=== PATIENT | male | born 1980 | race Caucasian/White ===

== ENCOUNTER 2017-10-03 15:20 | Emergency (ER) | payer OTHER ==
--- NOTE | 2017-10-03 16:17 | ER ---
Nurse's Notes [facility] Name: Sohan Rossi Age: 37 yrs Sex: Male : 1980 Arrival Date: 10/03/2017 Time: 15:24 Bed Treatment Private MD: Germania Lynch H Diagnosis: Low back pain;Radiculopathy, lumbar region-Left Presentation: 10/03 15:31 Presenting complaint: Patient states: " I've been having back pain for a while and I am ph having sciatic pain too." Pt reports pain in lower back that radiates to L leg and L groin. Pt reports having recent MRI at [facility] who instructed him to follow up w/ neuro and pain management. Transition of care: patient was not received from another setting of care. Onset of symptoms was October 03, 2017. Risk Assessment: Do you want to hurt yourself or someone else? Patient reports no desire to harm self or others. Initial Sepsis Screen: Does the patient meet any 2 criteria? No. Patient's initial sepsis screen is negative. Does the patient have a suspected source of infection? No. Patient's initial sepsis screen is negative. Care prior to arrival: None. 15:31 Method Of Arrival: Ambulatory ph 15:31 Acuity: KATIE 4 ph Historical: - Allergies: 15:34 No Known Allergies; ph - Home Meds: 15:34 Hydrocodone-Acetaminophen Oral [Active]; ph - PMHx: 15:34 None; ph - PSHx: 15:34 Knee surgery; ph - Immunization history:: Adult Immunizations up to date. - Social history:: Smoking status: Patient/guardian denies using tobacco. Screenin:54 Abuse screen: Denies threats or abuse. Denies injuries from another. Nutritional aj screening: No deficits noted. Tuberculosis screening: No symptoms or risk factors identified. Fall Risk None identified. Assessment: 15:54 General: Appears in no apparent distress. uncomfortable, Behavior is calm, cooperative, aj appropriate for age. Pain: Complains of pain in low back area and buttocks. Neuro: Level of Consciousness is awake, alert, obeys commands, Oriented to person, place, time, situation, Appropriate for age. Respiratory: Airway is patent Respiratory effort is even, unlabored, Respiratory pattern is regular, symmetrical. Derm: Skin is intact, is healthy with good turgor, Skin is pink, warm \\T\\ dry. normal. Musculoskeletal: Reports pain in low back area and buttocks. 16:21 Reassessment: Patient appears in no apparent distress at this time. No changes from aj previously documented assessment. Patient and/or family updated on plan of care and expected duration. Pain level reassessed. Patient is alert, oriented x 3, equal unlabored respirations, skin warm/dry/pink. Vital Signs: 15:35 BP 154 / 93; Pulse 94; Resp 18; Temp 97.8; Pulse Ox 98% on R/A; Weight 104.33 kg; ph Height 6 ft. 2 in. (187.96 cm); Pain 9/10; 15:35 Body Mass Index 29.53 (104.33 kg, 187.96 cm) ph ED Course: 15:24 Patient arrived in ED. mr 15:24 Germania Lynch DO is Private Physician. mr 15:34 Triage completed. ph 15:35 Arm band placed on. ph 15:39 Mady Kapoor, EDIS is Primary Nurse. aj 15:44 Wenceslao Valderrama PA is PHCP. cp 15:44 Wali Ag MD is Attending Physician. cp 15:54 Patient has correct armband on for positive identification. aj 16:21 No provider procedures requiring assistance completed. Patient did not have IV access aj during this emergency room visit. Administered Medications: No medications were administered Outcome: 16:16 Discharge ordered by MD. cp 16:21 Discharged to home with crutches. aj 16:21 Condition: good 16:21 Discharge instructions given to patient, Instructed on discharge instructions, follow up and referral plans. Demonstrated understanding of instructions, follow-up care. 16:23 Patient left the ED. aj Signatures: Mady Kapoor, RN RN Julee Biggs mr Caitlin Bautista RN RN ph Wenceslao Valderrama PA PA cp
--- NOTE | 2017-10-03 16:17 | EDPHYS ---
Physician Documentation [facility] Name: Sohan Rossi Age: 37 yrs Sex: Male : 1980 Arrival Date: 10/03/2017 Time: 15:24 Bed Treatment Private MD: Germania Lynch H ED Physician Wali Ag HPI: 10/03 16:07 This 37 yrs old Male presents to ER via Ambulatory with complaints of Back cp Pain. 16:07 The patient presents with pain that is chronic. The symptoms are located in the low cp back. Onset: The symptoms/episode began/occurred 6-8 weeks ago. Associated signs and symptoms: Pertinent negatives: abdominal pain, chest pain, constipation, fever, incontinence, numbness, urinary retention. Patient reports he has been performing normal duties at work and is requesting work note until he can f/u with pain management doctor and family doctor. 16:07 The pain radiates to the posterior aspect of left leg. cp Historical: - Allergies: 15:34 No Known Allergies; ph - Home Meds: 15:34 Hydrocodone-Acetaminophen Oral [Active]; ph - PMHx: 15:34 None; ph - PSHx: 15:34 Knee surgery; ph - Immunization history:: Adult Immunizations up to date. - Social history:: Smoking status: Patient/guardian denies using tobacco. ROS: 16:10 Eyes: Negative for injury, pain, redness, and discharge. cp 16:10 Constitutional: Negative for body aches, chills, fever, poor PO intake. 16:10 Eyes: Negative for discharge, pain, redness. 16:10 Neck: Negative for pain with movement, pain at rest, stiffness. 16:10 Cardiovascular: Negative for chest pain, edema, palpitations. 16:10 Respiratory: Negative for cough, shortness of breath, wheezing. 16:10 Abdomen/GI: Negative for abdominal pain, nausea, vomiting, and diarrhea, black/tarry stool, rectal bleeding, bowel incontinence. 16:10 : Negative for urinary symptoms, difficulty urinating, bladder incontinence, testicular pain 16:10 MS/extremity: Positive for pain, of the posterior aspect left leg. 16:10 Neuro: Negative for numbness, weakness. 16:10 All other systems are negative. Exam: 16:12 Head/Face: Normocephalic, atraumatic. cp 16:12 Constitutional: The patient appears in no acute distress, alert, awake, non-toxic, well developed, well nourished, uncomfortable. 16:12 Eyes: Periorbital structures: appear normal, Conjunctiva: normal, no exudate, no cp injection, Sclera: no appreciated abnormality, Lids and lashes: appear normal, bilaterally. 16:12 ENT: External ear(s): are unremarkable, Nose: is normal, Mouth: is normal. 16:12 Neck: External neck: is normal, ROM/movement: is normal, is supple. 16:12 Chest/axilla: Inspection: normal. 16:12 Cardiovascular: Rate: normal, Rhythm: regular. 16:12 Respiratory: the patient does not display signs of respiratory distress, Respirations: normal, no use of accessory muscles, no retractions, no splinting, no tachypnea. 16:12 Abdomen/GI: Exam negative for discomfort, distension, guarding, Inspection: abdomen appears normal. 16:12 Back: pain, of the lumbar area and left low back, ROM is painful. 16:12 Musculoskeletal/extremity: Exam is negative for calf tenderness, decreased range of motion, edema, injury. 16:12 Neuro: Orientation: is normal, Mentation: is normal, Motor: moves all fours. Vital Signs: 15:35 BP 154 / 93; Pulse 94; Resp 18; Temp 97.8; Pulse Ox 98% on R/A; Weight 104.33 kg; ph Height 6 ft. 2 in. (187.96 cm); Pain 9/10; 15:35 Body Mass Index 29.53 (104.33 kg, 187.96 cm) ph MDM: 15:44 Patient medically screened. cp 15:45 Differential diagnosis: sciatica, bulging disc, spinal stenosis, cauda equina. cp 16:15 Data reviewed: vital signs, nurses notes, old medical records, report of MRI done 09/2017 and as a result, I will discharge patient. 16:15 ED course: VSS. Note given for work restrictions given as requested. Will discharge to home for continued monitoring. Administered Medications: No medications were administered Disposition: 10/04 07:40 Co-signature as Attending Physician, Wali Ag MD. Disposition: 10/03/17 16:16 Discharged to Home. Impression: Low back pain, Radiculopathy, lumbar region - Left. - Condition is Stable. - Discharge Instructions: Back Pain, Adult, Back Exercises, Ngpc-vs-Azgo, Heat Therapy. - Work release form, Medication Reconciliation Form, Thank You Letter, Antibiotic Education, Prescription Opioid Use form. - Follow up: Private Physician; When: 1 - 2 days; Reason: Recheck today's complaints. - Problem is an ongoing problem. - Symptoms are unchanged. Signatures: Mady Kapoor RN RN aj Hall, Patricia, RN RN ph Jannie, Wenceslao, PA PA cp Wali Ag MD MD gs Corrections: (The following items were deleted from the chart) 10/03 16:12 16:07 The pain radiates to the posterior aspect of right leg, cp cp 16:23 16:16 10/03/2017 16:16 Discharged to Home. Impression: Low back pain; Radiculopathy, aj lumbar region - Left. Condition is Stable. Forms are Work release form, Medication Reconciliation Form, Thank You Letter, Antibiotic Education, Prescription Opioid Use. Follow up: Private Physician; When: 1 - 2 days; Reason: Recheck today's complaints. Problem is an ongoing problem. Symptoms are unchanged. cp
== END 2017-10-03 16:23 | disposition home or self-care (01) ==
LOC: ER 15:20
DX: M54.16 Radiculopathy, lumbar region (principal)
CPT/HCPCS: 99281

== ENCOUNTER 2018-11-15 09:32 | Emergency (ER) | payer OTHER, SELFPAY ==
--- OUTSIDE RECORDS SUMMARY | 2018-11-15 09:34 | XMS REPORT ---
:1980 [facility] [address] [place] [address] Dr. Glynn [address] [place] [id number] Care Team Providers Name Role Phone DR ANDREA CHIANG Unavailable Unavailable Problems This patient has no known problems. Allergies, Adverse Reactions, Alerts This patient has no known allergies or adverse reactions. Medications This patient has no known medications. Encounters Start End Encounter Admission Attending Care Care Encounter Date/Time Date/Time Type Type Clinicians Facility Department ID 2017-11-01 2017-11-01 Outpatient ALICIA DE LEÓN [facility] [id number] 09:05:00 11:25:00 ANDREA Results Test Description Test Time Test Comments Text Results Atomic Results Result Comments XR C-ARM<1HR W 2017-11-01 11:52:11 FluoroscopyLocation Code: [id number] IMAGES*HSE* HISTORY: R52: PAIN, UNSPECIFIEDComments: Fluoroscopy was provided during lumbar discogram and sacroiliacinjection. Approximate fluoroscopy time was 20.9 seconds. 5 images wereobtained.IMPRESSION: Fluoroscopy services provided. Please see operative report for fulldetails.
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
[2018-11-15] MEDS ORDERED: CYCLOBENZAPRINE 10 MG TAB ONE (10:56)
[2018-11-15] MEDS ORDERED: HYDROCODONE/APAP 5/325 MG TAB ONE (10:57)
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
== END 2018-11-15 11:32 | disposition home or self-care (01) ==
LOC: ER 09:32
DX: M25.552 Pain in left hip (principal); M25.561 Pain in right knee; V47.5XXA Car driver injured in collision with fixed or stationary object in traffic accident, initial encounter; I10 Essential (primary) hypertension
CPT/HCPCS: 70450; 71250; 72125; 99284

== ENCOUNTER 2018-12-18 08:00 | Emergency (ER) | payer SELFPAY ==
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
--- OUTSIDE RECORDS SUMMARY | 2018-12-18 08:02 | XMS REPORT ---
:1980 [facility] Address [address] [place] [address] Dr. Glynn [address] [place] [address] Care Team Providers Name Role Phone DR ANDREA CHIANG Unavailable Unavailable Problems This patient has no known problems. Allergies, Adverse Reactions, Alerts This patient has no known allergies or adverse reactions. Medications This patient has no known medications. Encounters Start End Encounter Admission Attending Care Care Encounter Date/Time Date/Time Type Type Clinicians Facility Department ID 2017-11-01 2017-11-01 Outpatient ALICIA DE LEÓN [facility] [id number] 09:05:00 11:25:00 ANDREA Results Test Description Test Time Test Comments Text Results Atomic Results Result Comments XR C-ARM<1HR W 2017-11-01 11:52:11 FluoroscopyLocation Code: [id number] IMAGES*HSE* HISTORY: R52: PAIN, UNSPECIFIEDComments: Fluoroscopy was provided during lumbar discogram and sacroiliacinjection. Approximate fluoroscopy time was 20.9 seconds. 5 images wereobtained.IMPRESSION: Fluoroscopy services provided. Please see operative report for fulldetails.
--- OUTSIDE RECORDS SUMMARY | 2018-12-18 08:02 | XMS REPORT | Summary of Care ---
:1980 Author Organization [facility] Address [address] [place] [address] Care Team Providers Name Role Phone Edmund Lynch Radha Primary Care Provider Encounter Details Date Type Department Care Team Description 12/17/2018 Orders Only [facility] Doctor Unassigned, [address] [facility] [place] [address] [address] [place] [address] Allergies No Known Allergiesdocumented as of this [...] Overview: Added automatically from request for surgery [id number] documented as of this encounter (statuses as [...] of this encounter Last Filed Vital Signs Not on filedocumented in this encounter Plan of Treatment Health Maintenance Due Date Last Done Comments DTaP,Tdap,and Td Vaccines ( - 02/01/1999 Tdap) INFLUENZA VACCINE 01/07/2019 PNEUMOCOCCAL 0-64 YEARS COMBINED Aged Out No longer eligible based on SERIES patient's age to complete this topic documented as of this encounter Procedures Procedure Name Priority Date/Time Associated Diagnosis Comments ASSIGNMENT OF BENEFITS Routine 12/17/2018 10:15 AM CDT documented in this encounter Results Not on filedocumented in this encounter Insurance Payer Benefit Plan / Group Subscriber ID Effective Dates Phone Address Type AETNA AETNA HMO [id number] 2014-Present HMO documented as of this encounter
--- NOTE | 2018-12-18 09:00 | RAD REPORT ---
EXAM DESCRIPTION: CT - CTFB CLINICAL HISTORY: right periorbital swelling and inferior lacerat;Facial pain COMPARISON: No comparisons TECHNIQUE: Axial 2 mm thick images of the face were obtained with sagittal and coronal reconstructio n images. All CT scans are performed using dose optimization technique as appropriate and may include automated exposure control or mA/KV adjustment according to patient size. FINDINGS: No acute facial bone fracture is seen.The mandible is intact. The globes and orbital contents are grossly unremarkable.Mild mucoperiosteal thickening is seen invol ving the left maxillary antrum. The paranasal sinuses and mastoids are otherwise clear. IMPRESSION: Negative for facial bone fracture.
--- NOTE | 2018-12-18 09:35 | RAD REPORT ---
EXAM DESCRIPTION: RAD - Elbow Right 3 View - 12/18/2018 8:49 am CLINICAL HISTORY: fall injury outstretched arm;Pain COMPARISON: No comparisons FINDINGS: No fracture or dislocation is evident.
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
== END 2018-12-18 10:00 | disposition home or self-care (01) ==
LOC: ER 08:00
DX: S53.401A Unspecified sprain of right elbow, initial encounter (principal); S01.81XA Laceration without foreign body of other part of head, initial encounter; S00.83XA Contusion of other part of head, initial encounter; W01.198A Fall on same level from slipping, tripping and stumbling with subsequent striking against other object, initial encounter; Y93.02 Activity, running; I10 Essential (primary) hypertension
CPT/HCPCS: 70486; 76377; 99283

== ENCOUNTER 2020-01-26 18:36 | Emergency (ER) | payer SELFPAY ==
--- OUTSIDE RECORDS SUMMARY | 2020-01-26 18:38 | XMS REPORT | Continuity of Care Document ---
:1980 Author Organization [facility] t Address [address] [place] [address] Care Team Providers Name Role Phone Pob1, Care Clinic Attending Clinician Unavailable Cesar RANDHAWA M Attending Clinician Unavailable Nurse, Urgent Care Attending Clinician Unavailable Doctor Unassigned, Name Attending Clinician Unavailable DR MARIIA Attending Clinician Unavailable DR MARIIA Admitting Clinician Unavailable Problems This patient has no known problems. Allergies, Adverse Reactions, Alerts This patient has no known allergies or adverse reactions. Medications This patient has no known medications. Procedures This patient has no known procedures. Encounters Start End Encounter Admission Attending Care Care Encounter Source Date/Time Date/Time Type Type Clinicians Facility Department ID 2019-08-30 2019-08-30 Urgent Pob1, Acute [facility] [id number] 07:53:57 08:35:51 [facility] [id number] [place] [id number] Professio [phone] [address]al [address] 2019-08-29 2019-08-29 Nurse SYED Guerrero [id number] 00:00:00 00:00:00 Triage Vianney [facility] [id number] [facility] [id number] 2018-12-17 2018-12-17 Nurse Raul Shannon [facility] [id number] 11:04:48 11:28:20 Visit Urgent [facility] [id number] Surgical [id number] Specialti [id number] [address] [place] 2018-12-17 2018-12-17 Orders Doctor SYED [id number] 00:00:00 00:00:00 Only Unassigned, EMELIA [id number] [place] [facility] [id number] 2017-11-01 2017-11-01 [facility] [id number] [address] 09:05:00 11:25:00 [facility] Results Test Description Test Time Test Comments Results Result [facility] e Comments XR C-ARM<1HR W 2017-11-01 FluoroscopyLocation IMAGES*HSE* 11:52:11 Code: [id number] HISTORY: R52: PAIN, UNSPECIFIEDComments: Fluoroscopy was provided during lumbar discogram and sacroiliacinjection. Approximate fluoroscopy time was 20.9 seconds. 5 images wereobtained.IMPRESSION: Fluoroscopy services provided. Please see operative report for fulldetails.
[2020-01-26] MEDS ORDERED: HYDROCODONE/APAP 7.5/325 MG TAB ONE (19:12)
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
[2020-01-26 21:37] VITALS: TEMP 98.5
[2020-01-26 21:38] VITALS: O2SAT 99
[2020-01-26 21:40] VITALS: BP 136/80
== END 2020-01-26 21:25 | disposition home or self-care (01) ==
LOC: ER 18:36
DX: M54.5 Low back pain (principal); V47.5XXA Car driver injured in collision with fixed or stationary object in traffic accident, initial encounter; I10 Essential (primary) hypertension; F41.9 Anxiety disorder, unspecified
CPT/HCPCS: 72131; 99284

== ENCOUNTER 2020-06-18 18:57 | Emergency (ER) | payer BC, OTHER, SELFPAY ==
[2020-06-18] MEDS ORDERED: IBUPROFEN 400 MG TAB ONE (20:01)
[2020-06-18] MEDS ORDERED: ACETAMINOPHEN 325 MG TABLET ONE (20:02)
--- OUTSIDE RECORDS SUMMARY | 2020-06-18 20:26 | XMS REPORT | Continuity of Care Document ---
:1980 Author Organization [facility] t Address [address] [place] [address] Care Team Providers Name Role Phone Pob1, [...] Department ID 2019-08-30 2019-08-30 Urgent Pob1, Acute [facility] [id number] 07:53:57 08:35:51 [facility] [id number] [place] [id number] Professio [id number] nal [address] 2019-08-29 2019-08-29 Nurse SYED Guerrero [id number] 00:00:00 00:00:00 Triage Vianney [facility] [id number] [facility] [id number] 2018-12-17 2018-12-17 Nurse Raul Shannon [facility] [id number] 11:04:48 11:28:20 Visit Urgent [facility] [id number] Surgical [id number] Specialti [id number] [address] [place] 2018-12-17 2018-12-17 Orders Doctor SYED [id number] 00:00:00 00:00:00 Only Unassigned, EMELIA [id number] [place] [facility] [id number] 2017-11-01 2017-11-01 Outpatient Angely CHIANG [facility] [id number] [address] 09:05:00 11:25:00 [facility] Results Test Description Test Time Test Comments Results Result [facility] e Comments XR C-ARM<1HR W 2017-11-01 FluoroscopyLocation IMAGES*HSE* 11:52:11 Code: [id number] HISTORY: R52: PAIN, UNSPECIFIEDComments: Fluoroscopy was provided during lumbar discogram and sacroiliacinjection. Approximate fluoroscopy time was 20.9 seconds. 5 images wereobtained.IMPRESSION: Fluoroscopy services provided. Please see operative report for fulldetails.
--- NOTE | 2020-06-18 20:35 | RAD REPORT ---
EXAM DESCRIPTION: Alisson Single View06/18/2020 8:29 pm CLINICAL HISTORY: Chest pain COMPARISON: none FINDINGS: The lungs appear clear of acute infiltrate. The heart is normal size IMPRESSION: No acute abnormalities displayed
--- NOTE | 2020-06-18 20:51 | RAD REPORT ---
EXAM DESCRIPTION: RAD - Lumbar Spine 3 Views - 06/18/2020 8:46 pm CLINICAL HISTORY: Back pain FINDINGS: The alignment of the lumbar spine is satisfactory. No fracture or dislocation is seen. Marked spondylosis L5-S1 consisting disc space narrowing, subchondral sclerosis and osteophytes
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
[2020-06-18 21:34] VITALS: BP 142/96; TEMP 98.8; O2SAT 99
== END 2020-06-18 21:25 | disposition home or self-care (01) ==
LOC: ER 18:57
DX: M54.5 Low back pain (principal); M25.661 Stiffness of right knee, not elsewhere classified; R07.89 Other chest pain; V49.40XA Driver injured in collision with unspecified motor vehicles in traffic accident, initial encounter; F41.9 Anxiety disorder, unspecified; I10 Essential (primary) hypertension; M25.562 Pain in left knee; G89.29 Other chronic pain
CPT/HCPCS: 71045; 72100; 99283

== ENCOUNTER 2020-08-17 07:31 | Emergency (ER) | payer BC, SELFPAY ==
--- OUTSIDE RECORDS SUMMARY | 2020-08-17 07:34 | XMS REPORT | Continuity of Care Document ---
:1980 Author Organization [facility] t Address [address] [place] [address] Care Team Providers Name Role Phone Pob1, [...] Department ID 2019-08-30 2019-08-30 Urgent Pob1, Acute [facility] [id number] 07:53:57 08:35:51 [facility] [id number] [place] [id number] Professio [phone] [address] 2019-08-29 2019-08-29 Nurse SYED Guerrero [id number] 00:00:00 00:00:00 Triage V[facility] [id number] [facility] [phone] [id number] 2018-12-17 2018-12-17 Nurse Raul Shannon [facility] [id number] 11:04:48 11:28:20 Visit Urgent [facility] [id number] Surgical [id number] Specialti [phone] [address] 2018-12-17 2018-12-17 Orders Doctor SYED [id number] 00:00:00 00:00:00 Only Unassigned, EMELIA [id number] N[facility]a [facility] [phone] [id number] 2017-11-01 2017-11-01 Outpatient Angely CHIANG [facility] [id number] [address] 09:05:00 11:25:00 [facility] Results Test Description Test Time Test Comments Results Result [facility] e Comments XR C-ARM<1HR W 2017-11-01 FluoroscopyLocation IMAGES*HSE* 11:52:11 Code: [id number] HISTORY: R52: PAIN, UNSPECIFIEDComments: Fluoroscopy was provided during lumbar discogram and sacroiliacinjection. Approximate fluoroscopy time was 20.9 seconds. 5 images wereobtained.IMPRESSION: Fluoroscopy services provided. Please see operative report for fulldetails.
[2020-08-17 08:03] LABS: Absolute Lymphocytes (CBC) 1.7 K/uL (0.7-4.9); Basophils % 0.6 % (0-1.3); Lymphocytes % 24.4 % (15.3-44.8); MPV 8.1 fL (7.6-11.3); RBC Red Blood Cell Count 4.41 M/uL (4.33-5.43)
[2020-08-17 08:17] LABS: Potassium 3.6 mmol/L (3.5-5.1)
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
[2020-08-17 08:35] LABS: Hematocrit 41.8 % (39.6-49.0)
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
--- NOTE | 2020-08-17 11:02 | RAD REPORT ---
EXAM DESCRIPTION: RAD - Ankle Left 3 View - 08/17/2020 9:16 am CLINICAL HISTORY: PAIN COMPARISON: Ankle Left 3 View dated 06/11/2019 FINDINGS: No fracture or dislocation is seen. Small calcaneal spurs are evident.
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
[2020-08-17 11:59] LABS: Barbiturates NEGATIVE (NEGATIVE); Benzodiazepines NEGATIVE (NEGATIVE); Cocaine NEGATIVE (NEGATIVE); METHAMPHETAM NEGATIVE (NEGATIVE); Methadone NEGATIVE (NEGATIVE); Opiates NEGATIVE (NEGATIVE); Phencyclidine NEGATIVE (NEGATIVE); THC Cannibis NEGATIVE (NEGATIVE)
[2020-08-17 16:38] VITALS: BP 156/100; TEMP 97.7; O2SAT 100
== END 2020-08-17 14:20 | disposition home or self-care (01) ==
LOC: ER 07:31
DX: S00.90XA Unspecified superficial injury of unspecified part of head, initial encounter (principal); M79.672 Pain in left foot; M79.671 Pain in right foot; V49.49XA Driver injured in collision with other motor vehicles in traffic accident, initial encounter; I10 Essential (primary) hypertension; F41.9 Anxiety disorder, unspecified
CPT/HCPCS: 36415; 70450; 71260; 72125; 74177; 80048; 80307; 80320; 85025; 99284; Q9967

== ENCOUNTER 2022-05-05 22:29 | Emergency (ER) | payer SELFPAY, OTHER ==
--- OUTSIDE RECORDS SUMMARY | 2022-05-05 22:32 | XMS REPORT | Continuity of Care Document ---
:1980 Author Organization [facility] t Address [address] [place] [address] Care Team Providers Name Role Phone CLEMENTE JACKSON Radha Primary Care Physician Unavailable FRANCISCO FRASER Attending Clinician Unavailable Francisco Fraser MD Attending Clinician Jose Attending Clinician Unavailable Pob1, Acute Care Clinic Attending Clinician Unavailable Bela Lacy Attending Clinician BELA MURRAY Attending Clinician Unavailable Vianney Guerrero RN Attending Clinician Unavailable Nurse, [facility] Attending Clinician Unavailable Unknown, Attending Attending Clinician Unavailable Doctor Unassigned, [place] Attending Clinician Unavailable DR ANDREA CHIANG Attending Clinician Unavailable FRANCISCO FRASER Admitting Clinician Unavailable Jose Admitting Clinician Unavailable DR ANDREA CHIANG Admitting Clinician Unavailable Payers Payer Name Policy Type Policy Number Effective Date Expiration Date [facility] [id number] [facility] [id number] 2014 00:00:00 Problems Condition Condition Condition Status Onset Resolution Last Treating Co mments Source Name Details Category Date Date Treatment Clinician Date Rectal Rectal Disease Active 2016-05 Overview: [facility] s bleeding bleeding 2-15 Formattin ity of 00:00: g of this [place] [id number] note Medical might be Branch different from the original. Added automatic ally from request for surgery [id number] Allergies, Adverse Reactions, Alerts Allergy Allergy Status Severity Reaction(s) Onset Inactive Treating Comm ents Source Name Type Date Date Clinician NO KNOWN Drug Active Univers ALLERGIE Class ity of S [facility] Social History Social Habit Start Date Stop Date Quantity Comments Source Exposure to Unable to assess Univers ity of SARS-CoV-2 [place] [facility] (event) Branch Alcohol intake 2019-08-30 2019-08-30 Current University 00:00:00 00:00:00 non-drinker of [facility] alcohol Branch (finding) Tobacco use and 2017-04-27 2017-04-27 Never used Universit y of exposure 00:00:00 00:00:00 [facility] Sex Assigned At [birth year] Universit y of 00:00:00 00:00:00 [facility] Smoking Status Start Date Stop Date Source Never smoker [facility] Medications Ordered Filled Start Stop Current Ordering Indication Dosage Frequency Signature Comments Components Source Medication Medication Date Date Medication? Clinician (SIG) Name Name iopamidol 2021- No [id number] 100mL 100 mL, Univers (ISOVUE 08-19 Intravenou ity o f 370-500 mL) 07:00: 05:45 s, ONCE, 1 [place] injection 00 :00 dose, On Medica l 100 mL Wed Branch 08/19/21 at 0200, Routine NaCl 0.9% 2021- No 1000mL at 999 Uni vers (NS) bolus 08-19 mL/hr, ity of infusion 06:00: 09:45 1,000 mL, [place] 1,000 mL 00 :00 IV Medical Infusion, Branch ONCE, 1 dose, On 08/19/21 at 0100, DANAE bromphenira 2019- No [id number] 5mL Take 5 mL Univers mine-pseudo 08-29 by mouth 4 i ty of ephedrine-D 00:00: 04:59 (four) [place] M (BROMFED 00 :00 times Medical DM) 2-30-10 daily as Bran ch mg/5 mL needed for syrup Congestion /Allergies or Cough for up to 10 days. fluticasone 2020- No [id number] 2{spray Use 2 Univers (FLONASE 08-29 } Sprays in ity o f SENSIMIST) 00:00: 04:59 each [place] 27.5 00 :00 nostril Medical mcg/actuati daily for Bra nch on nasal 1 day. spray MOVANTIK 2016-05 Yes 12.5mg Take 12.5 Un keegan 12.5 mg Tab 2-12 mg by ity of 00:00: mouth daily. Medical Branch MOVANTIK 2016-05 Yes 12.5mg Take 12.5 Un keegan 12.5 mg Tab 2-12 mg by ity of 00:00: mouth 00 daily. Medical Branch MOVANTIK 2016-05 Yes 12.5mg Take 12.5 Un keegan 12.5 mg Tab 2-12 mg by ity of 00:00: mouth 00 daily. Medical Branch MOVANTIK 2016-05 Yes 12.5mg Take 12.5 Un keegan 12.5 mg Tab 2-12 mg by ity of 00:00: mouth 00 daily. Medical Branch MOVANTIK 2016-05 Yes 12.5mg Take 12.5 Un keegan 12.5 mg Tab 2-12 mg by ity of 00:00: mouth 00 daily. Medical Branch SUBOXONE 2016-05 Yes 8mg Take 8 mg Univ ers 8-2 mg 2-11 by mouth ity of sublingual 00:00: daily. [place] film Medical Branch SUBOXONE 2016-05 Yes 8mg Take 8 mg Univ ers 8-2 mg 2-11 by mouth ity of sublingual 00:00: daily. [place] film Medical Branch SUBOXONE 2016-05 Yes 8mg Take 8 mg Univ ers 8-2 mg 2-11 by mouth ity of sublingual 00:00: daily. [place] film Medical Branch SUBOXONE 2016-05 Yes 8mg Take 8 mg Univ ers 8-2 mg 2-11 by mouth ity of sublingual 00:00: daily. [place] film Medical Branch SUBOXONE 2016-05 Yes 8mg Take 8 mg Univ ers 8-2 mg 2-11 by mouth ity of sublingual 00:00: daily. [place] film Medical Branch clonazePAM 2016- Yes 2mg Take 2 mg Un ekegan 2 mg tablet 1-28 by mouth 2 it y of 00:00: (two) [place] 00 times Medical daily. Branch clonazePAM 2016-05 Yes 2mg Take 2 mg Un keegan 2 mg tablet 1-28 by mouth 2 it y of 00:00: (two) [place] 00 times Medical daily. Branch clonazePAM 2016-05 Yes 2mg Take 2 mg Un keegan 2 mg tablet 1-28 by mouth 2 it y of 00:00: (two) [place] 00 times Medical daily. Branch clonazePAM 2016-05 Yes 2mg Take 2 mg Un keegan 2 mg tablet 1-28 by mouth 2 it y of 00:00: (two) [place] 00 times Medical daily. Branch clonazePAM 2016-05 Yes 2mg Take 2 mg Un keegan 2 mg tablet 1-28 by mouth 2 it y of 00:00: (two) [place] 00 times Medical daily. Branch butalbital- 2016-05 Yes 1{tbl} Take 1 Un keegan acetaminoph 1-13 tablet by ity of en-caff 00:00: mouth [place] 50-325-40 00 every 6 Medical mg tablet (six) Branch hours as needed. butalbital2016-05 Yes 1{tbl} Take 1 Un keegan acetaminoph 1-13 tablet by ity of en-caff 00:00: mouth [place] 50-325-40 00 every 6 Medical mg tablet (six) Branch hours as needed. butalbital2016-05 Yes 1{tbl} Take 1 Un keegan acetaminoph 1-13 tablet by ity of en-caff 00:00: mouth [place] 50-325-40 00 every 6 Medical mg tablet (six) Branch hours as needed. butalbital2016-05 Yes 1{tbl} Take 1 Un keegan acetaminoph 1-13 tablet by ity of en-caff 00:00: mouth [place] 50-325-40 00 every 6 Medical mg tablet (six) Branch hours as needed. butalbital2016-05 Yes 1{tbl} Take 1 Un keegan acetaminoph 1-13 tablet by ity of en-caff 00:00: mouth [place] 50-325-40 00 every 6 Medical mg tablet (six) Branch hours as needed. Vital Signs Vital Name Observation Time Observation Value Comments Source Body temperature 2021-08-19 10:00:00 37.11 [facility]olic [facility] 2021-08-19 09:00:00 126 mm[Hg] Univer sity [facility] Diastolic blood 2021-08-19 09:00:00 92 mm[Hg] Unive [facility] Heart rate 2021-08-19 09:00:00 79 /min [facility] Respiratory rate 2021-08-19 09:00:00 16 /min Univ ersity [facility] [place] [facility] Oxygen saturation in 2021-08-19 09:00:00 97 /min University of Arterial blood by [facility] Pulse oximetry Branch Body height 2021-08-19 04:55:57 188 cm [facility] [place] [facility] Body weight 2021-08-19 04:55:57 104.327 kg [facility] [place] [facility] BMI 2021-08-19 04:55:57 29.53 kg/m2 [facility] [place] [facility] Heart rate 2019-08-30 13:19:00 78 /min [facility] [place] [facility] Body temperature 2019-08-30 13:19:00 36.83 Marissa Univ ersity [facility] [place] [facility] Respiratory rate 2019-08-30 13:19:00 18 /min Univ ers[facility] [place] [facility] Body height 2019-08-30 13:19:00 188 cm [facility] [place] [facility] Body weight 2019-08-30 13:19:00 97.523 kg [facility] [place] [facility] BMI 2019-08-30 13:19:00 27.60 kg/m2 [facility] [place] [facility] Oxygen saturation in 2019-08-30 13:19:00 98 /min University of Arterial blood by [facility] Pulse oximetry Branch Systolic blood 2019-08-30 13:19:00 139 mm[Hg] Univer sity of pressure [place] [facility] Diastolic blood 2019-08-30 13:19:00 88 mm[Hg] Unive rsity of pressure [place] [facility] Heart rate 2019-08-30 13:19:00 78 /min [facility] [place] [facility] Body temperature 2019-08-30 13:19:00 36.83 Marissa Univ ersity [facility] [place] [facility] Respiratory rate 2019-08-30 13:19:00 18 /min Univ ersity [facility] [place] [facility] Body height 2019-08-30 13:19:00 188 cm [facility] [place] [facility] Body weight 2019-08-30 13:19:00 97.523 kg [facility] [place] [facility] BMI 2019-08-30 13:19:00 27.60 kg/m2 [facility] [place] [facility] Oxygen saturation in 2019-08-30 13:19:00 98 /min University of Arterial blood by [facility] Pulse oximetry Branch Systolic blood 2019-08-30 13:19:00 139 mm[Hg] Univer sity of [facility] [place] [facility] Diastolic blood 2019-08-30 13:19:00 88 mm[Hg] Unive rsity of [facility] [place] [facility] Systolic blood 2018-12-17 16:42:00 129 mm[Hg] Univer sity of [facility] [place] [facility] Diastolic blood 2018-12-17 16:42:00 87 mm[Hg] Unive rsity of [facility] [place] [facility] Heart rate 2018-12-17 16:42:00 91 /min Universi ty of [facility] Body temperature 2018-12-17 16:42:00 36.44 Marissa Univ ersity of [facility] Respiratory rate 2018-12-17 16:42:00 18 /min Univ ersity of [facility] Body weight 2018-12-17 16:42:00 96.525 kg Universi ty of [facility] BMI 2018-12-17 16:42:00 27.32 kg/m2 Universi ty of [facility] Oxygen saturation in 2018-12-17 16:42:00 98 /min University of Arterial blood by [facility] Pulse oximetry Branch Systolic blood 2018-12-17 16:42:00 129 mm[Hg] Univer sity of pressure [place] [facility] Diastolic blood 2018-12-17 16:42:00 87 mm[Hg] Unive rsity of [facility] [place] [facility] [place] Heart rate 2018-12-17 16:42:00 91 /min [facility]i [facility] [place] [facility] [place] Body temperature 2018-12-17 16:42:00 36.44 Marissa Univ ersity of [facility] Respiratory rate 2018-12-17 16:42:00 18 /min Univ ersity of [place] [facility] [place] Body weight 2018-12-17 16:42:00 96.525 kg [facility] [place] [facility] BMI 2018-12-17 16:42:00 27.32 kg/m2 Universi ty of [facility] Oxygen saturation in 2018-12-17 16:42:00 98 /min University of Arterial blood by [facility] Pulse oximetry Branch Procedures Procedure Date / Time Performing Clinician Source Performed URINALYSIS 2021-08-19 06:41:00 Francisco Fraser o f [facility] URINE DRUG (IMMUNOASSAY) 2021-08-19 06:41:00 Fraser, Francisco [facility] SCREEN W/O REFLEX CT TRAUMA THORAX W 2021-08-19 05:51[facility] ABDOMEN PELVIS 2021-08-19 05:51:00 Francisco Fraser [facility] CONTRAST Medical Branch CT TRAUMA HEAD WO 2021-08-19 05:49:00 Francisco Fraser [facility] CONTRAST [facility] [place] [facility] TRAUMA CERVICAL SPINE 2021-08-19 05:49:00 Francisco Fraser [facility] CONTRAST Medical Branch CT TRAUMA THORACIC SPINE 2021-08-19 05:49:00 Francisco Fraser [facility] CONTRAST Medical [place] CT TRAUMA LUMBAR SPINE 2021-08-19 05:49:00 [facility] CONTRAST Medical [place] ABORH CONFIRMATION (LAB 2021-08-19 05:45:00 Francisco Fraser [facility] ONLY) Medical Branch HB ABO GROUPING 2021-08-19 05:05:00 Francisco Fraser [facility] ACTIVATED PARTIAL 2021-08-19 05:04:00 Francisco Fraser [facility] THRMPLAS CATHRYN Medical Branch LIPASE 2021-08-19 05:04:00 [facility] COMP. METABOLIC PANEL 2021-08-19 05:04:00 [facility] [place] [id number] ETHANOL 2021-08-19 05:04:00 [facility] CBC WITH DIFF 2021-08-19 05:04:00 Francisco [facility] PROTHROMBIN TIME / INR 2021-08-19 05:04:00 [facility] LACTIC ACID WHOLE BLOOD 2021-08-19 05:03:00 Francisco Fraser [facility] ASSIGNMENT OF BENEFITS 2018-12-17 15:15:52 Doctor Unassigned, No [facility] Name Medical Branch Encounters Start End Encounter Admission Attending Care Care Encounter Source Date/Time Date/Time Type Type Clinicians Facility Department ID 2021-08-18 2021-08-19 Emergency X JAYSON FRASER ERT [id number] Univers 23:48:00 05:09:00 FRANCISCO moreira [facility] [place] [facility] 2021-08-18 2021-08-19 Emergency [facility] [id number] Univers 23:48:00 05:09:00 Franciscorhoda LOPEZ [id number] i ty [facility] 4.2.7.2.686 [facility] [id number] [place] [id number] [place] 2020-09-11 2020-09-11 Outpatient Koudela_A [facility] [id number] [place] 08:59:00 08:59:00 0506 Medical Group 2020-05-15 2020-05-15 Outpatient Koudela_A [facility] [id number] -[id number] [place] 11:57:00 11:57:00 0107 Medical Group 2020-05-14 2020-05-14 Outpatient Koudela_A MM[facility] [id number] [place] 10:42:00 10:42:00 0106 Medical Group 2020-05-13 2020-05-13 Outpatient Koudela_A MM[facility] [id number] -[id number] [place] 10:40:00 10:40:00 0105 [facility] 2019-08-30 2019-08-30 Urgent Pob1, Acute [facility] [id number] 07:53:57 08:35:51 [facility] [id number] [place] 4.2.7.2.686 Professio [id number] [place] [address] [address] 2019-08-30 2019-08-30 Urgent Pob1, Acute Care [facility] 1. 2.840.114 [id number] [facility] 07:53:57 08:35:51 [facility] [id number] ity [facility] 4.2.7.2.686 [facility] Professio [id number] [place] [address] Office [address] 2019-08-30 2019-08-30 [facility] [id number] Univers 08:00:00 08:00:00 BELA moreira [facility] [place] [facility] 2019-08-29 2019-08-29 Nurse SYED Guerrero [id number] 00:00:00 00:00:00 Triage Vianney Renaldo EMELIA [id number] HOSPITAL 4.2.7.2.686 [id number] 2019-08-29 2019-08-29 Nurse SYED Guererro [id number] Univers 00:00:00 00:00:00 Triage Vianney Renaldo EMELIA [id number] ity of HOSPITAL 4.2.7.2.686 [place] [id number] [address] 2018-12-17 2018-12-17 Nurse Nurse, [facility] 1.2.840.114 [id number] 11:04:48 11:28:20 Visit Urgent Care Health [id number] Surgical 4.2.7.2.[address] Specialti [id number] [address] 2018-12-17 2018-12-17 Nurse Nurse, [facility] Urgent Care [facility] 1.2 .840.114 [id number] [facility] 11:04:48 11:28:20 Visit Unknown, Attending Health 350.1.13.10 ity of Surgical 4.2.7.2.686 [place] Specialti [id number] Ok dical [address] 2018-12-17 2018-12-17 Orders Doctor SYED 1.2.840.114 [id number] 00:00:00 00:00:00 Only Unassigned, EMELIA 350.1.13.10 [place] [facility] 4.2.7.2.686 [id number] 2018-12-17 2018-12-17 Orders Doctor SYED 1.2.840.114 [id number] Univers 00:00:00 00:00:00 Only Unassigned, EMELIA 350.1.13.10 ity of [place] [facility] 4.2.7.2.686 [place] [id number] [address] 2017-11-01 2017-11-01 Outpatient Angely CHIANG [facility] HSEACU [id number] [place] 09:05:00 11:25:00 [facility] Results Test Description Test Time Test Comments Results Result Comments Source Lactic Acid Whole Blood 2021-08-19 06:52:45 Test Item Value Reference Range Interpretation Comme nts LACTIC ACID (test code = 5507683156) 1.82 mmol/L 0.50-2.20 Lab Interpretation (test code = 59437-1) Normal [facility] Conf[facility] (Lab Only)2021-08-19 06:09:17 Test Item Value Reference Range Interpretation Comments ABO & RH (test code O Positive Performe d at [facility] = 20) Laboratory [facility] Blood Bank[address] [place] [address] Free: [phone] A No. [id number] [facility] and Screen - ONCE [id number] 05:48:43 Test Item Value Reference Range Interpretation Comments ABO & RH (test code O Positive Performe d at [facility] = 20) Laboratory [facility] Blood Bank[address] [place] [address] Free: [phone] A No. [id number] IAT (test code = Negative Performed a t [facility] 1185) Laboratory [facility] Blood Bank[address] [place] [address] Free: [phone] A No. [id number] [facility] THRMPLAS [id number] 05:38:43 Test Item Value Reference Range Interpretation Comments APTT Patient (test See_Comment [Automat ed code = 3173-2) message] The system which generated this result transmitted reference range : 23 - 38 Seconds . The reference range was not used to interpr et this result as normal/abnormal . DIANNE (test code = DIANNE) The [facility] patient population mean normal value for aPTT is 30 seconds. Lab Interpretation Normal (test code = 13304-5) [facility] Temple[facility] TIME / [id number] 05:36:22 Test Item Value Reference Range Interpretation Comments PROTIME PATIENT (test See_Comment [Auto mated message] code = 5964-2) The system wh ich generated this result transmitted ref erence range: 12.0 - 1 4.7 Seconds. The re ference range was not u sed to interpret this result as normal/abnor mal. INR (test code = 6301-6) Nor mal INR <1.1; Warfarin Therap eutic range 2.0 to 3. 0 or 2.5 to 3.5, dep ending upon the indica tions. 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 METABOLIC PANEL (03414)2021-08-19 05:32:44 Test Item Value Reference Range Interpretation Comments NA (test code = 140 mmol/L 135-145 0825825748) K (test code = 3.5 mmol/L 3.5-5.0 3264708913) CL (test code = 103 mmol/L 98-108 5776320876) CO2 TOTAL (test code = 26 mmol/L 23-31 6805149318) AGAP (test code = 2-16 4150990377) BUN (test code = 16 mg/dL 7-23 1090828518) GLUCOSE (test code = 81 mg/dL 70-110 3634138409) CREATININE (test code = 1.23 mg/dL 0.60-1.25 9266050353) TOTAL BILI (test code = 0.6 mg/dL 0.1-1.9 4504232178) CALCIUM (test code = 8.4 mg/dL 8.6-10.6 L 5319136475) T PROTEIN (test code = 7.0 g/dL 6.3-8.2 8791764093) ALBUMIN (test code = 4.4 g/dL 3.5-5.0 7289933318) ALK PHOS (test code = 70 U/L 34-122 2597069871) ALTv (test code = 22 U/L 5-50 1742-6) AST(SGOT) (test code = 31 U/L 13-40 0318184814) eGFR (test code = mL/min/1.73m2 3391009466) DIANNE (test code = DIANNE) Association of Glomerular Filtration Rate (GFR) and Staging of Kidney Disease* + --+ --+ ------+| GFR (mL/min/1.73 m2) ?| With Kidney Damage ?| ?Without Kidney Damage+ --------+ --------+ +| ?>90 ?| ?Stage one ?| ? Normal ?+ ---+ ---+ -------+| ?60-89 ?| ?Stage two ?| ? Decreased GFR ? + --+ --+ ------+| ?30-59 ?| ?Stage three ?| ? Stage three ? + --+ --+ ------+| ?15-29 ?| ?Stage four ? | ? Stage four ?+ ---+ ---+ -------+| ?<15 (or dialysis) ? ?| ?Stage five ? | ? Stage five ?+ ---+ ---+ -------+ *Each stage assumes the associated GFR level has been in effect for at least three months. ?Stages 1 to 5, with or without kidney disease, indicate chronic kidney disease. Notes: Determination of stages one and two (with eGFR >59mL/min/1.73 m2) requires estimation of kidney damage for at least three months as defined by structural or functional abnormalities of the kidney, manifested by either:Pathological abnormalities or Markers of kidney damage (including abnormalities in the composition of the blood or urine or abnormalities in imaging tests). Lab Interpretation Abnormal (test code = 46310-1) [facility]2022-04-13 05:32:24 Test Item Value Reference Range Interpretation Comments LIPASE (test code = 2063238115) 483 U/L 0-220 H Lab Interpretation (test code = Abnormal 55270-3) [facility] WITH [id number] 05:16:40 Test Item Value Reference Range Interpretation Comments WBC (test code = See_Comment [Automated 7506-2) message] The sy stem which generated this result transmitted reference range : 4.20 - 10.70 10*3/?L. The reference range was not used to interpret this result as normal/abnormal . RBC (test code = See_Comment [Automated 600-2) message] The sy stem which generated this result transmitted reference range : 4.26 - 5.52 10*6/?L. The reference range was not used to interpret this result as normal/abnormal . HGB (test code = 14.8 g/dL 12.2-16.4 718-7) HCT (test code = 40.5 % 38.4-49.3 4544-3) MCV (test code = 92.0 fL 81.7-95.6 787-2) MCH (test code = 33.6 pg 26.1-32.7 H 785-6) MCHC (test code = 36.5 g/dL 31.2-35.0 H 786-4) RDW-SD (test code = 40.1 fL 38.5-51.6 51262-9) RDW-CV (test code = 12.1 % 12.1-15.4 788-0) PLT (test code = See_Comment [Automated 777-3) message] The sy stem which generated this result transmitted reference range : 150 - 328 10*3/ ?L. The reference r mona was not used to interpret this result as normal/abnormal . MPV (test code = 10.0 fL 9.8-13.0 41542-6) NRBC/100 WBC (test See_Comment [Automat ed code = 4415713628) message] The system which generated this result transmitted reference range : 0.0 - 10.0 /100 WBCs. The refer ence range was not u sed to interpret th is result as normal/abnormal . NRBC x10^3 (test code <0.01 See_Comment [Auto mated = 9287694328) message] The s ystem which generated this result transmitted reference range : 10*3/?L. The reference range was not used to interpret this result as normal/abnormal . GRAN MAT (NEUT) % 51.6 % (test code = 770-8) IMM GRAN % (test code 0.30 % = 2377841586) LYMPH % (test code = 39.5 % 736-9) MONO % (test code = 7.4 % 5905-5) EOS % (test code = 0.4 % 713-8) BASO % (test code = 0.8 % 706-2) GRAN MAT x10^3(ANC) 3.81 10*3/uL 1.99-6.95 (test code = 1077312657) IMM GRAN x10^3 (test <0.03 0.00-0.06 code = 9808712603) LYMPH x10^3 (test code 2.92 10*3/uL 1.09-3.23 = 731-0) MONO x10^3 (test code 0.55 10*3/uL 0.36-1.02 = 742-7) EOS x10^3 (test code = 0.03 10*3/uL 0.06-0.53 L 711-2) BASO x10^3 (test code 0.06 10*3/uL 0.01-0.09 = 704-7) Lab Interpretation Abnormal (test code = 97670-2) [facility] C-ARM<1HR W IMAGES*HSE*2017-11-01 11:52:11FluoroscopyLocation Code: [id number] HISTORY: R52: PAIN, UNSPECIFIEDComments: Fluoroscopy was provided during lumbar discogram and sacroiliacinjection. Approximate fluoroscopy time was 20.9 seconds. 5 images wereobtained.IMPRESSION: Fluoroscopy services provided. Please see operative report for fulldetails."
[2022-05-06 00:15] LABS: Hematocrit 44.5 % (39.6-49.0); Lymphocytes % 38.6 % (15.3-44.8); MCV 93.2 fL (80-100); MPV 7.7 fL (7.6-11.3); RBC Red Blood Cell Count 4.77 M/uL (4.33-5.43)
[2022-05-06 00:27] LABS: Albumin 4.1 g/dL (3.4-5.0); Bilirubin Direct 0.1 mg/dL (0-0.2); Bilirubin Total 0.5 mg/dL (0.2-1.0); Potassium 3.3 mmol/L (3.5-5.1); Protein, Total 7.3 g/dL (6.4-8.2)
[2022-05-06 01:38] LABS: Urine Blood Negative (Negative); Urine Glucose Negative (Negative); Urine Protein Trace (Negative); Urine Specific Gravity 1.025 (1.005-1.030); Urine pH 5.5 (5.0-7.0)
[2022-05-06 02:19] LABS: Barbiturates NEGATIVE (NEGATIVE); Benzodiazepines NEGATIVE (NEGATIVE); Cocaine NEGATIVE (NEGATIVE); METHAMPHETAM NEGATIVE (NEGATIVE); Methadone NEGATIVE (NEGATIVE); Opiates POSITIVE (NEGATIVE); Phencyclidine NEGATIVE (NEGATIVE); THC Cannibis NEGATIVE (NEGATIVE)
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
[2022-05-06 02:44] VITALS: BP 132/84; TEMP 98.2; O2SAT 100
--- NOTE | 2022-05-06 17:43 | EKG ---
Test Date: 2022-05-05 Test Time: 23:33:21 [employer]ble [employer] Helper: RV MEASUREMENT RESULTS: Intervals: Rate: 100 WY: 146 QRSD: 84 QT: 360 QTc: 464 Gratis: P: 54 WY: 146 QRS: 60 T: 37 INTERPRETIVE STATEMENTS: Normal sinus rhythm Normal ECG Compared to ECG 05/27/2014 16:37:06 Sinus bradycardia no longer present Sinus arrhythmia no longer present Electronically Signed On 05-06-22 17:41:55 MDM DEVELOPER by John oGldberg
== END 2022-05-06 02:36 | disposition home or self-care (01) ==
LOC: ER 22:29
DX: R78.1 Finding of opiate drug in blood (principal); M25.561 Pain in right knee; I10 Essential (primary) hypertension; F41.9 Anxiety disorder, unspecified
CPT/HCPCS: 36415; 80048; 80076; 80307; 80320; 80329; 81003; 85025; 93005; 99284

== ENCOUNTER 2022-09-09 19:03 | Emergency (ER) | payer OTHER ==
--- OUTSIDE RECORDS SUMMARY | 2022-09-09 19:07 | XMS REPORT | Continuity of Care Document ---
:1980 Author Organization [facility] t Address [address] [facility]. [address] [place] [address] Care Team Providers Name Role Phone JACKSONCLEMENTE Forrester Radha Primary Care Physician Unavailable Pancho Attending Clinician Unavailable FRACNISCO FRASER Attending Clinician Unavailable Francisco Fraser MD Attending Clinician Jose Attending Clinician Unavailable Pob1, Acute Care Clinic Attending Clinician Unavailable Bela Lacy Attending Clinician BELA MURRAY Attending Clinician Unavailable Vianney Guerrero RN Attending Clinician Unavailable Nurse, [facility] Attending Clinician Unavailable Unknown, Attending Attending Clinician Unavailable Doctor Unassigned, [place] Attending Clinician Unavailable DR ANDREA CHIANG Attending Clinician Unavailable Pancho Admitting Clinician Unavailable FRANCISCO FRASER Admitting Clinician Unavailable Jose Admitting Clinician Unavailable DR ANDREA CHIANG Admitting Clinician Unavailable Payers Payer Name Policy Type Policy Number Effective Date Expiration Date S edmar BLANKENSHIP/ VARSHA [id number] [facility] [id number] 2014 00:00:00 Problems Condition Condition Condition Status Onset Resolution Last Treating Co mments Source Name Details Category Date Date Treatment Clinician Date Rectal Rectal Disease Active 2016-05 Overview: Univer s bleeding bleeding 2-15 Formattin ity of 00:00: g of this [place] 00 note Medical might be Branch different from the original. Added automatic ally from request for surgery [id number] Allergies, Adverse Reactions, Alerts Allergy Allergy Status Severity Reaction(s) Onset Inactive Treating Comm ents Source Name Type Date Date Clinician NO KNOWN Drug Active Univers ALLERGIE Class ity of S [facility] Social History Social Habit Start Date Stop Date Quantity Comments Source Exposure to Unable to assess Univers ity of SARS-CoV-2 [facility] (event) Branch Alcohol intake 2019-08-30 2019-08-30 Current University 00:00:00 00:00:00 non-drinker of [facility] alcohol [place] (finding) Tobacco use and 2017-04-27 2017-04-27 Never used Universit y of exposure 00:00:00 00:00:00 [facility] Sex Assigned At [birth year] Universit y of 00:00:00 00:00:00 [facility] Smoking Status Start Date Stop Date Source Never smoker [facility] Medications Ordered Filled Start Stop Current Ordering Indication Dosage Frequency Signature Comments Components Source Medication Medication Date Date Medication? Clinician (SIG) Name Name iopamidol 2021- No [id number] 100mL 100 mL, Univers (ISOVUE 08-19 Intravenou [...] dose, On 08/19/21 at 0100, DANAE bromphenira 2020- No [id number] 5mL Take 5 mL Univers mine-pseudo 08-29 05-04 by mouth 4 i ty of ephedrine-D 00:00: 04:59 (four) [place] as M (BROMFED 00 :00 times Medical DM) 2-30-10 daily as Bran ch mg/5 mL needed for syrup Congestion /Allergies or Cough for up to 10 days. fluticasone 2020- No [id number] 2{spray Use 2 Univers (FLONASE 08-29 } [...] ity of 00:00: mouth daily. Medical Branch SUBOXONE 2016-05 Yes 8mg Take 8 mg Univ ers 8-2 mg 2-11 by mouth ity of sublingual 00:00: daily. [place] [facility] SUBOXONE 2016-05 Yes 8mg Take 8 mg Univ ers 8-2 mg 2-11 by mouth ity of sublingual 00:00: daily. [place] [facility] SUBOXONE 2016-05 Yes 8mg Take 8 mg Univ ers 8-2 mg 2-11 by mouth ity of sublingual 00:00: daily. [place] [facility] SUBOXONE 2016-05 Yes 8mg Take 8 mg Univ ers 8-2 mg 2-11 by mouth ity of sublingual 00:00: daily. [place] [facility] SUBOXONE 2016-05 Yes 8mg Take 8 mg Univ ers 8-2 mg 2-11 by mouth ity of sublingual 00:00: daily. [place] [facility] clonazePAM 2016-05 Yes 2mg Take 2 mg Un keegan 2 mg tablet 1-28 by mouth 2 it y of 00:00: (two) 00 times Medical daily. Branch clonazePAM 2016-05 Yes 2mg Take 2 mg Un keegan 2 mg tablet 1-28 by mouth 2 it y of 00:00: (two) 00 times Medical daily. Branch clonazePAM 2016-05 [...] Body temperature 2021-08-19 10:00:00 37.11 Marissa Univ ersity of [facility] Systolic blood 2021-08-19 09:00:00 126 mm[Hg] Univer sity of pressure [facility] Diastolic blood 2021-08-19 09:00:00 92 mm[Hg] Unive rsity of pressure [facility] Heart rate 2021-08-19 09:00:00 79 /min Universi ty of [place] [facility] Respiratory rate 2021-08-19 09:00:00 16 /min Univ ersity of [place] [facility] Oxygen saturation in 2021-08-19 09:00:00 97 /min University of Arterial blood by [facility] sandra Pulse oximetry Branch Body height 2021-08-19 04:55:57 188 cm Universi ty [facility] [place] [facility] Body weight 2021-08-19 04:55:57 104.327 kg Universi ty [facility] [place] [facility] BMI 2021-08-19 04:55:57 29.53 kg/m2 Universi ty [facility] [place] [facility] Diastolic blood 2019-08-30 13:19:00 88 mm[Hg] Unive rsity of pressure [place] [facility] Heart rate 2019-08-30 13:19:00 78 /min Universi ty [facility] [place] [facility] Body temperature 2019-08-30 13:19:00 36.83 Marissa Univ ersity of [place] [facility] Respiratory rate 2019-08-30 13:19:00 18 /min Univ ersity of [place] [facility] Body height 2019-08-30 13:19:00 188 cm Universi ty [facility] [place] [facility] Body weight 2019-08-30 13:19:00 97.523 kg [facility] [place] [facility] BMI 2019-08-30 13:19:00 27.60 kg/m2 Universi ty [facility] [place] [facility] Oxygen saturation in 2019-08-30 13:19:00 98 /min University of Arterial blood by [facility] Pulse oximetry Branch Systolic blood 2019-08-30 13:19:00 139 mm[Hg] Univer sity of pressure [place] [facility] Diastolic blood 2019-08-30 13:19:00 88 mm[Hg] Unive rsity of pressure [place] [facility] Heart rate 2019-08-30 13:19:00 78 /min Universi ty [facility] [place] [facility] Body temperature 2019-08-30 13:19:00 36.83 Marissa Univ ersity of [place] [facility] Respiratory rate 2019-08-30 13:19:00 18 /min Univ ersity of [place] [facility] Body height 2019-08-30 13:19:00 188 cm Universi ty [facility] [place] [facility] Body weight 2019-08-30 13:19:00 97.523 kg Universi ty [facility] [place] [facility] BMI 2019-08-30 13:19:00 27.60 kg/m2 Universi ty [facility] [place] [facility] Oxygen saturation in 2019-08-30 13:19:00 98 /min University of Arterial blood by [facility] Pulse oximetry Branch Systolic blood 2019-08-30 13:19:00 139 mm[Hg] Univer sity of pressure [place] [facility] Systolic blood 2018-12-17 16:42:00 129 mm[Hg] Univer sity of pressure [place] [facility] Diastolic blood 2018-12-17 16:42:00 87 mm[Hg] Unive rsity of pressure [place] [facility] Heart rate 2018-12-17 16:42:00 91 /min Universi ty [facility] [place] [facility] Body temperature 2018-12-17 16:42:00 36.44 Marissa Univ ersity of [place] [facility] Respiratory rate 2018-12-17 16:42:00 18 /min Univ ersity of [place] [facility] Body weight 2018-12-17 16:42:00 96.525 kg Universi ty [facility] [place] [facility] BMI 2018-12-17 16:42:00 27.32 kg/m2 Universi ty [facility] [place] [facility] Oxygen saturation in 2018-12-17 16:42:00 98 /min University of Arterial blood by [facility] Pulse oximetry Branch Systolic blood 2018-12-17 16:42:00 129 mm[Hg] Univer sity of pressure [place] [facility] Diastolic blood 2018-12-17 16:42:00 87 mm[Hg] Unive rsity of pressure [place] [facility] Heart rate 2018-12-17 16:42:00 91 /min Universi ty [facility] [place] [facility] Body temperature 2018-12-17 16:42:00 36.44 Marissa Univ ersity of [place] [facility] Respiratory rate 2018-12-17 16:42:00 18 /min Univ ersity of [place] [facility] Body weight 2018-12-17 16:42:00 96.525 kg Universi ty [facility] [place] [facility] BMI 2018-12-17 16:42:00 27.32 kg/m2 Universi ty [facility] [place] [facility] Oxygen saturation in 2018-12-17 16:42:00 98 /min University of Arterial blood by [facility] Pulse oximetry Branch Procedures Procedure Date / Time Performing Clinician Source Performed URINALYSIS 2021-08-19 06:41:00 Francisco Fraser [facility] URINE DRUG (IMMUNOASSAY) 2021-08-19 06:41:00 Francisco Fraser [facility] DRUG Medical [facility] nch SCREEN W/O REFLEX CT TRAUMA THORAX W 2021-08-19 05:51:00 Francisco Fraser [facility] CONTRAST Medical [place] CT TRAUMA ABDOMEN PELVIS 2021-08-19 05:51:00 Francisco Fraser [facility] CONTRAST Medical [place] CT TRAUMA HEAD WO 2021-08-19 05:49:00 Francisco Fraser [facility] CONTRAST Medical Branch CT TRAUMA CERVICAL SPINE 2021-08-19 05:49:00 Francisco Fraser [facility] CONTRAST Medical Branch CT TRAUMA THORACIC SPINE 2021-08-19 05:49:00 Francisco Fraser [facility] CONTRAST Medical [place] CT TRAUMA LUMBAR SPINE 2021-08-19 05:49:[address] [facility] CONTRAST Medical [place] ABORH CONFIRMATION (LAB 2021-08-19 05:45:00 Francisco Fraser [facility] ONLY) Medical [place] HB ABO GROUPING 2021-08-19 05:05:00 Francisco Fraser [facility] ACTIVATED PARTIAL 2021-08-19 05:04:00 Francisco Fraser [facility] THRMPLAS CATHRYN [facility] Branch LIPASE 2021-08-19 05:04:00 Francisco Fraser [facility] COMP. METABOLIC PANEL 2021-08-19 05:04:00 Francisco Fraser [facility] ([id number]) Medical Branch ETHANOL 2021-08-19 05:04:00 Francisco [facility] CBC WITH DIFF 2021-08-19 05:04:00 Francicso Fraser [facility] PROTHROMBIN TIME / INR 2021-08-19 05:04:[address] [facility] LACTIC ACID WHOLE BLOOD 2021-08-19 05:03:00 Francisco Fraser [facility] ASSIGNMENT OF BENEFITS 2018-12-17 15:15:52 Doctor Unassigned, No [facility] Name Medical Branch Encounters Start End Encounter Admission Attending Care Care Encounter Source Date/Time Date/Time Type Type Clinicians Facility Department ID 2022-05-18 2022-05-18 Outpatient FOG_Munshi_ AOSM AOSM [id number] Lizette 00:00:00 00:00:00 Sanchez [id number] Orthop e dic Sports Medicin e 2021-08-18 2021-08-19 Emergency X BRIA [facility] ERT [id number] Univers 23:48:00 05:09:00 FRANCISCO ity of [facility] 2021-08-18 2021-08-19 [facility] [id number] Univers 23:48:00 05:09:00 Francisco [place] 350.1.13.10 i ty [facility] 4.2.7.2.686 [facility] [id number] [address] 2020-09-11 2020-09-11 [place] [id number] -[id number] [place] 08:59:00 08:59:00 0506 [facility] 2020-05-15 2020-05-15 Outpatient Koudela_A MMG MMG [id number] [place] 11:57:00 11:57:00 0107 [facility] 2020-05-14 2020-05-14 Outpatient Koudela_A MMG MMG [id number] -[id number] [place] 10:42:00 10:42:00 0106 [facility] 2020-05-13 2020-05-13 Outpatient Koudela_A MMG MMG [id number] [place] 10:40:00 10:40:00 0105 [facility] 2019-08-30 2019-08-30 Urgent Pob1, Acute [facility] [id number] 07:53:57 08:35:51 [facility] [id number] [place] 4.2.7.2.686 Professio [id number] nal [address] 2019-08-30 2019-08-30 Urgent Pob1, Acute Care Clinic [facility] 1. [id number] [facility] 07:53:57 08:35:51 Care [place], [facility] [id number] ity of [place] 4.2.7.2.[address] [place] [id number] [facility] [address] [place] [address] 2019-08-30 2019-08-30 Outpatient R TREVOR, [facility] [id number] Univers 08:00:00 08:00:00 BELA moreira of [facility] 2019-08-29 2019-08-29 Nurse SYED Guerrero [id number] 00:00:00 00:00:00 Triage Vianney M EMELIA [id number] HOSPITAL 4.2.7.2.686 [id number] 2019-08-29 2019-08-29 Nurse SYED Guerrero [id number] Univers 00:00:00 00:00:00 Triage Vianney M EMELIA 350.1.13.10 ity of HOSPITAL 4.2.7.2.686 [place] as [id number] [address] 2018-12-17 2018-12-17 Nurse Nurse, Raul [facility] [id number] 11:04:48 11:28:20 Visit Urgent Care Health [id number] Surgical 4.2.7.2.686 Specialti [id number] [address] 2018-12-17 2018-12-17 Nurse Nurse, [facility] 1.2 .[id number] [facility] 11:04:48 11:28:20 Visit Unknown, Attending Health 350.1.13.10 ity of Surgical 4.2.7.2.686 [place] as Specialti [id number] Tn dical [address] [facility] 2018-12-17 2018-12-17 Orders Doctor SYED Sauceda.2.840.114 [id number] 00:00:00 00:00:00 Only Unassigned, EMELIA 350.1.13.10 [place] [facility] 4.2.7.2.686 [id number] 2018-12-17 2018-12-17 Orders Doctor SYED [id number] Univers 00:00:00 00:00:00 Only Unassigned, EMELIA 350.1.13.10 ity of [place] [facility] 4.2.7.2.686 [place] as [id number] [address] 2017-11-01 2017-11-01 Outpatient Anegly CHIANG [facility] [id number] 09:05:00 11:25:00 Merged with [facility] Results Test Description Test Time Test Comments Results Result Comments Source Lactic Acid Whole Blood 2021-08-19 06:52:45 Test Item Value Reference Range Interpretation Comme nts LACTIC ACID (test code = 8451239696) 1.82 mmol/L 0.50-2.20 Lab Interpretation (test code = 56618-2) [facility] Only)2021-08-19 06:09:17 Test Item Value Reference Range Interpretation Comments ABO & RH (test code O Positive Performe d at [facility] = 20) Laboratory Serv [facility] [address] [place] [address] Free: [phone] A No. [id number] [facility] Screen - ONCE [id number] 05:48:43 Test Item Value Reference Range Interpretation Comments ABO & RH (test code O Positive Performe d at [facility] = 20) Laboratory Serv [facility] [address] [place], [place] [address]Toll Free: [phone] A No. [id number] IAT (test code = Negative Performed a t [facility] 1185) Laboratory [facility] [place], [place] [address]Toll Free: [phone] A No. [id number] [facility] THRMPLAS [id number] 05:38:43 Test Item Value Reference Range Interpretation [...] seconds. Lab Interpretation Normal (test code = 80815-5) [facility] / [id number] 05:36:22 Test Item Value Reference Range Interpretation Comments PROTIME PATIENT (test See_Comment [Auto mated message] code = 5964-2) The system [employer] generated this result transmitted ref erence range: 12.0 - 1 4.7 Seconds. The re ference range was not u sed to interpret this result as normal/abnor mal. INR (test code = 6301-6) Nor mal INR <1.1; Warfarin Therap eutic range 2.0 to 3. 0 or 2.5 to 3.5, dep ending upon the indica tions. Lab Interpretation (test Normal code = 84482-9) [facility]2022-[facility]13 05:33:25 Test Item Value Reference Range Interpretation Comments ALCOHOL (test code = 149 mg/dL 0600574996) DIANNE (test code = DIANNE) <10 [id number] Toxic>100 Depression of SENIOR RESEARCH SCIENTIST>400 Fatalities Reported [facility] Hospital[facility]. METABOLIC PANEL (81058)2021-08-19 05:32:44 Test Item Value Reference Range Interpretation Comments NA (test code = 140 mmol/L 135-145 8080858401) K (test code = 3.5 mmol/L 3.5-5.0 3506392016) CL (test code = 103 mmol/L 98-108 1737043002) CO2 TOTAL (test code = 26 mmol/L 23-31 6990242427) AGAP (test code = 2-16 1761651985) BUN (test code = 16 mg/dL 7-23 5707780456) GLUCOSE (test code = 81 mg/dL 70-110 5275521672) CREATININE (test code = 1.23 mg/dL 0.60-1.25 8939029953) TOTAL BILI (test code = 0.6 mg/dL 0.1-1.3 2140207552) CALCIUM (test code = 8.4 mg/dL 8.6-10.6 L 3049036091) T PROTEIN (test code = 7.0 g/dL 6.3-8.2 3073544662) ALBUMIN (test code = 4.4 g/dL 3.5-5.0 9053813896) ALK PHOS (test code = 70 U/L 34-122 6564572403) ALTv (test code = 22 U/L 5-50 1742-6) AST(SGOT) (test code = 31 U/L 13-40 2199293226) eGFR (test code = mL/min/1.73m2 7640371119) DIANNE (test code = DIANNE) Association of [...] tests). Lab Interpretation Abnormal (test code = 57752-5) [facility]2022-[facility] 05:32:24 Test Item Value Reference Range Interpretation Comments LIPASE (test code = 9214341448) 483 U/L 0-220 H Lab Interpretation (test code = Abnormal 67512-3) [facility] WITH [id number] 05:16:40 Test Item Value Reference Range Interpretation Comments WBC (test code = See_Comment [Automated 9890-2) message] The sy stem which generated this result transmitted reference range : 4.20 - 10.70 10*3/?L. The reference range was not used to interpret this result as normal/abnormal . RBC (test code = See_Comment [Automated 789-8) message] The sy stem which generated this [...] RDW-SD (test code = 40.1 fL 38.5-51.6 85122-4) RDW-CV (test code = 12.1 % 12.1-15.4 788-0) PLT (test code = See_Comment [Automated 777-3) message] The sy stem which generated this result transmitted reference range : 150 - 328 10*3/ ?L. The reference r mona was not used to interpret this result as normal/abnormal . MPV (test code = 10.0 fL 9.8-13.0 76016-7) NRBC/100 WBC (test See_Comment [Automat ed code = 4707752838) message] The system which generated this result transmitted reference range : 0.0 - 10.0 /100 WBCs. The refer ence range was not u sed to interpret th is result as normal/abnormal . NRBC x10^3 (test code <0.01 See_Comment [Auto mated = 1344786169) message] The s ystem which generated this result transmitted reference range : 10*3/?L. The reference range was not used to interpret this result as normal/abnormal . GRAN MAT (NEUT) % 51.6 % (test code = 770-8) IMM GRAN % (test code 0.30 % = 5029919935) LYMPH % (test code = 39.5 % 736-9) MONO % (test code = 7.4 % 5905-5) EOS % (test code = 0.4 % 713-8) BASO % (test code = 0.8 % 706-2) GRAN MAT x10^3(ANC) 3.81 10*3/uL 1.99-6.95 (test code = 1755741921) IMM GRAN x10^3 (test <0.03 0.00-0.06 code = 0453494352) LYMPH x10^3 (test code 2.92 10*3/uL 1.09-3.23 = 731-0) MONO x10^3 (test code 0.55 10*3/uL 0.36-1.02 = 742-7) EOS x10^3 (test code = 0.03 10*3/uL 0.06-0.53 L 711-2) BASO x10^3 (test code 0.06 10*3/uL 0.01-0.09 = 704-7) Lab Interpretation Abnormal (test code = 41337-0) [facility]<1HR W IMAGES*HSE*2017-11-01 11:52:11FluoroscopyLocation Code: K1QDNPMBLE HISTORY: R52: PAIN, UNSPECIFIEDComments: Fluoroscopy was provided during lumbar discogram and sacroiliacinjection. Approximate fluoroscopy time was 20.9 seconds. 5 images wereobtained.IMPRESSION: Fluoroscopy services provided. Please see operative report for fulldetails."
[2022-09-09] MEDS ORDERED: IBUPROFEN 400 MG TAB ONE (20:08)
[2022-09-09] MEDS ORDERED: HYDROCODONE/APAP 7.5/325 MG TAB ONE (20:08)
--- NOTE | 2022-09-09 20:31 | RAD REPORT ---
EXAM DESCRIPTION: RAD - Knee Right 3 View - 09/09/2022 8:19 pm CLINICAL HISTORY: PAIN COMPARISON: <Comparisons> FINDINGS: Mild arthritic changes. Small suprapatellar joint effusion. No fracture evident.
--- NOTE | 2022-09-09 21:20 | ER ---
Nurse's Notes [facility] Name: Sohan Rossi Age: 42 yrs Sex: Male : 1980 Arrival Date: 09/09/2022 Time: 19:03 Bed 9 Private MD: Diagnosis: Pain in right knee Presentation: 09/09 19:32 Chief complaint: Patient states: C/o right knee pain 02/15. Coronavirus screen: Vaccine ll3 status: Patient reports receiving the 2nd dose of the covid vaccine. At this time, the client does not indicate any symptoms associated with coronavirus-19. Ebola Screen: No symptoms or risks identified at this time. Initial Sepsis Screen: Does the patient meet any 2 criteria? HR > 90 bpm. Yes Does the patient have a suspected source of infection? No. Patient's initial sepsis screen is negative. Risk Assessment: Do you want to hurt yourself or someone else? Patient reports no desire to harm self or others. Onset of symptoms is unknown. Care prior to arrival: Medication(s) given: Clonazepam at 2 PM. 19:32 Method Of Arrival: Ambulatory ll3 19:32 Acuity: KATIE 3 ll3 Historical: - Allergies: 19:34 No Known Allergies; ll3 - Home Meds: 19:34 Oxycodone HCl Oral [Active]; Clonazepam Oral [Active]; gabapentin oral [Active]; ll3 duloxetine oral [Active]; - PMHx: 19:34 Anxiety; Hypertension; ll3 - PSHx: 19:34 left hip; ll3 - Immunization history:: Client reports receiving the 2nd dose of the Covid vaccine. - Social history:: Smoking status: Patient denies any tobacco usage or history of. Assessment: 21:32 General: Appears in no apparent distress. Pain: Complains of pain in right knee Pain mb9 radiates to right leg Quality of pain is described as throbbing. Neuro: Level of Consciousness is awake, alert, obeys commands, Oriented to person, place, time, situation, Appropriate for age. Cardiovascular: Patient's skin is warm and dry. Respiratory: Airway is patent Respiratory effort is even, unlabored, Respiratory pattern is regular, symmetrical. Derm: Skin is pink, warm \T\ dry. Musculoskeletal: Range of motion: intact in all extremities. Vital Signs: 19:32 BP 153 / 109; Pulse 107; Resp 16; Temp 99.3(O); Pulse Ox 96% on R/A; Weight 99.79 kg ll3 (R); Height 6 ft. 2 in. (R); Pain 10/10; 21:33 BP 138 / 74; Pulse 88; Resp 16; Pulse Ox 97% on R/A; mb9 19:32 Body Mass Index 28.25 (99.79 kg, 187.96 cm) ll3 19:32 Pain Scale: Adult ll3 ED Course: 19:12 Patient arrived in ED. mr 19:34 Triage completed. ll3 19:34 Arm band placed on. ll3 19:50 Wenceslao Valderrama PA is PHCP. cp 19:50 Wenceslao Rivera MD is Attending Physician. cp 20:06 Rowena Ayers, EDIS is Primary Nurse. mb9 20:21 XRAY Knee RIGHT 3 view In Process Unspecified. EDMS 21:19 Uli Saunders MD is Referral Physician. cp 21:33 No provider procedures requiring assistance completed. Patient did not have IV access mb9 during this emergency room visit. Administered Medications: 20:06 Drug: Ibuprofen PO 800 mg Route: PO; mb9 21:32 Follow up: Response: No adverse reaction mb9 20:06 Drug: Hydrocodone-Acetaminophen PO (7.5 mg-325 mg) 1 tabs Route: PO; mb9 21:31 Follow up: Response: No adverse reaction mb9 Medication: 21:33 VIS not applicable for this client. mb9 Outcome: 21:19 Discharge ordered by MD. cp 21:33 Discharged to home ambulatory. mb9 21:33 Condition: stable 21:33 Discharge instructions given to patient, Instructed on discharge instructions, follow up and referral plans. Demonstrated understanding of instructions, follow-up care, medications, Prescriptions given X 1. 21:34 Patient left the ED. mb9 Signatures: Dispatcher [employer] HILARY Quiros Rowena mr Wenceslao Valderrama PA PA cp Loubet, Lynsea, RN RN 3 Rowena Ayers, EDIS RN mb9
--- NOTE | 2022-09-09 21:20 | EDPHYS ---
Physician Documentation [facility] Name: Sohan Rossi Age: 42 yrs Sex: Male : 1980 Arrival Date: 09/09/2022 Time: 19:03 Bed 9 Private MD: Wenceslao Monk HPI: 09/09 19:55 This 42 yrs old Male presents to ER via Ambulatory with complaints of Knee Pain. cp 19:55 The patient presents with pain, that is chronic. The complaints affect the medial cp aspect of right knee and right knee. Context: the patient can fully bear weight, the patient is able to ambulate, with mild difficulty, Problem is a result from a previous injury: No. Onset: The symptoms/episode began/occurred for years. Modifying factors: the symptoms are aggravated by weight bearing, bending knee. Associated signs and symptoms: The patient has no apparent associated signs or symptoms. Treatment prior to arrival includes: no previous treatment. Historical: - Allergies: 19:34 No Known Allergies; ll3 - Home Meds: 19:34 Oxycodone HCl Oral [Active]; Clonazepam Oral [Active]; gabapentin oral [Active]; ll3 duloxetine oral [Active]; - PMHx: 19:34 Anxiety; Hypertension; ll3 - PSHx: 19:34 left hip; ll3 - Immunization history:: Client reports receiving the 2nd dose of the Covid vaccine. - Social history:: Smoking status: Patient denies any tobacco usage or history of. ROS: 20:00 MS/extremity: Positive for pain, of the right knee and medial aspect of right knee, cp Negative for injury or acute deformity, decreased range of motion, paresthesias. 20:00 Constitutional: Negative for body aches, chills, fever. cp 20:00 Neck: Negative for pain with movement, pain at rest. 20:00 Cardiovascular: Negative for chest pain. 20:00 Respiratory: Negative for cough, shortness of breath, wheezing. 20:00 Back: Negative for pain at rest, pain with movement. 20:00 Skin: Negative for rash. 20:00 All other systems are negative. Exam: 20:05 Constitutional: The patient appears in no acute distress, alert, awake, non-toxic, well cp developed, well nourished. 20:05 Head/Face: Normocephalic, atraumatic. cp 20:05 Chest/axilla: Inspection: normal. 20:05 Cardiovascular: Rate: normal. 20:05 Respiratory: the patient does not display signs of respiratory distress, Respirations: normal, no use of accessory muscles, no retractions, labored breathing, is not present. 20:05 Abdomen/GI: Exam negative for discomfort, distension, guarding, Inspection: abdomen appears normal. 20:05 Back: pain, is absent, ROM is normal. 20:05 Musculoskeletal/extremity: Extremities: noted in the right knee: pain, tenderness to palpation superior and medial side of knee, There is no evidence of decreased ROM, ligament instability, ROM: full passive range of motion, in the right knee. 20:05 Skin: cellulitis, is not appreciated, no rash present. Vital Signs: 19:32 BP 153 / 109; Pulse 107; Resp 16; Temp 99.3(O); Pulse Ox 96% on R/A; Weight 99.79 kg ll3 (R); Height 6 ft. 2 in. (R); Pain 10/10; 21:33 BP 138 / 74; Pulse 88; Resp 16; Pulse Ox 97% on R/A; mb9 19:32 Body Mass Index 28.25 (99.79 kg, 187.96 cm) ll3 19:32 Pain Scale: Adult ll3 MDM: 19:50 Patient medically screened. cp 20:00 Differential diagnosis: tendonitis, fracture, ligament injury, meniscus injury. cp 21:18 Data reviewed: vital signs, nurses notes, radiologic studies, plain films. cp 21:18 I considered the following discharge prescriptions or medication management in the emergency department Medications were administered in the Emergency Department. See MAR. Counseling: I had a detailed discussion with the patient and/or guardian regarding: the historical points, exam findings, and any diagnostic results supporting the discharge/admit diagnosis, radiology results, the need for outpatient follow up, for definitive care, a orthopedic surgeon, to return to the emergency department if symptoms worsen or persist or if there are any questions or concerns that arise at home. Response to treatment: the patient's symptoms have mildly improved after treatment, and as a result, I will discharge patient. 09/09 19:55 Order name: XRAY Knee RIGHT 3 view; Complete Time: 21:03 cp 09/09 21:03 Interpretation: Report reviewed. cp Administered Medications: 20:06 Drug: Ibuprofen PO 800 mg Route: PO; mb9 21:32 Follow up: Response: No adverse reaction mb9 20:06 Drug: Hydrocodone-Acetaminophen PO (7.5 mg-325 mg) 1 tabs Route: PO; mb9 21:31 Follow up: Response: No adverse reaction mb9 Disposition Summary: 09/09/22 21:19 Discharge Ordered Location: Home cp Problem: an ongoing problem cp Symptoms: have improved cp Condition: Stable cp Diagnosis - Pain in right knee cp Followup: cp - With: Uli Saunders MD - When: 1 week - Reason: Recheck today's complaints Discharge Instructions: - Discharge Summary Sheet cp - Joint Pain cp - How to Use a Knee Brace cp Forms: - Medication Reconciliation Form cp - Thank You Letter cp - Antibiotic Education cp - Prescription Opioid Use cp Prescriptions: - Diclofenac Sodium 75 mg Oral Tablet Sustained Release - take 1 tablet by ORAL route 2 times per day; 30 tablet; Refills: 0, Product cp Selection Permitted Signatures: Dispatcher [employer] EDWenceslao Key PA PA cp Loubet, Lynsea, RN RN ll3 Rowena Ayers RN RN mb9
[2022-09-09 21:38] VITALS: TEMP 99.3
[2022-09-09 21:39] VITALS: BP 138/74; O2SAT 97
== END 2022-09-09 21:34 | disposition home or self-care (01) ==
LOC: ER 19:03
DX: M25.561 Pain in right knee (principal)
CPT/HCPCS: 99283

== ENCOUNTER 2022-11-23 07:36 | Emergency (ER) | payer OTHER ==
--- OUTSIDE RECORDS SUMMARY | 2022-11-23 07:39 | XMS REPORT | Continuity of Care Document ---
:1980 Author Organization [facility] t Address [address] [place] [address] Care Team Providers Name Role Phone JACKSONCLEMENTE Forrester Radha Primary Care Physician Unavailable Pancho Attending Clinician Unavailable FRANCISCO FRASER Attending Clinician Unavailable Francisco Fraser MD Attending Clinician Jose Attending Clinician Unavailable Pob1, Acute Care Clinic Attending Clinician Unavailable Bela Lacy Attending Clinician BELA MURRAY Attending Clinician Unavailable Vianney Guerrero RN Attending Clinician Unavailable Nurse, [facility] Attending Clinician Unavailable Unknown, Attending Attending Clinician Unavailable Doctor Unassigned, [place] Attending Clinician Unavailable DR ANDREA CHIANG Attending Clinician Unavailable Pancho Admitting Clinician Unavailable FRANCISCO FRASER Admitting Clinician Unavailable Jose Admitting Clinician Unavailable DR ANDREA CHIANG Admitting Clinician Unavailable Payers Payer Name Policy Type Policy Number Effective Date Expiration Date S edmar [employer]/ VARSHA [id number] [facility] [id number] 2014 00:00:00 Problems Condition Condition Condition Status Onset Resolution Last Treating Co mments Source Name Details Category Date Date Treatment Clinician Date Rectal Rectal Disease Active 2016-05 Overview: Univer s bleeding bleeding 2-15 Formattin ity of 00:00: g of this [place] 00 note Medical might be Branch different from the original. Added automatic ally from request for surgery [id number] Allergies, Adverse Reactions, Alerts Allergy Allergy Status Severity Reaction(s) Onset Inactive Treating Comm ents Source Name Type Date Date Clinician NO KNOWN Drug Active Univers ALLERGIE Class ity of [facility] Social History Social Habit Start Date Stop Date Quantity Comments Source Exposure to Unable to assess Univers ity of SARS-CoV-2 [facility] (event) Branch Alcohol intake 2019-08-30 2019-08-30 Current University 00:00:00 00:00:00 non-drinker of [facility] alcohol [place] (finding) Tobacco use and 2017-04-27 2017-04-27 Never used Universit y of exposure 00:00:00 00:00:00 [facility] Sex Assigned At [birth year] Universit y of 00:00:00 00:00:00 [facility] Smoking Status Start Date Stop Date Source Never smoker [facility] Medications Ordered Filled Start Stop Current Ordering Indication Dosage Frequency Signature Comments Components Source Medication Medication Date Date Medication? Clinician (SIG) Name Name iopamidol 2021- No [id number] 100mL 100 mL, Univers (ISOVUE 08-19 Intravenou [...] 08/19/21 at 0100, DANAE bromphenira 2020- No [id number] 5mL Take 5 mL Univers mine-pseudo 08-29 05-04 by mouth 4 i ty of ephedrine-D 00:00: 04:59 (four) [place] M (BROMFED 00 :00 times Medical DM) 2-30-10 daily as Bran ch mg/5 mL needed for syrup Congestion /Allergies or Cough for up to 10 days. fluticasone 2020- No [id number] 2{spray Use 2 Univers (FLONASE 08-29 } [...] 2021-08-19 10:00:00 37.11 Marissa [address] [facility] Systolic blood 2021-08-19 09:00:00 126 mm[Hg] Univer sity of pressure [facility] Diastolic blood 2021-08-19 09:00:00 92 mm[Hg] Unive rsity of pressure [facility] Heart rate 2021-08-19 09:00:00 79 /min Universi ty [facility] Respiratory rate 2021-08-19 09:00:00 16 /min Univ ersity of [place] [facility] Oxygen saturation in 2021-08-19 09:00:00 97 /min University of Arterial blood by [facility] sandra Pulse oximetry Branch Body height 2021-08-19 04:55:57 188 cm Universi ty [facility] Body weight 2021-08-19 04:55:57 104.327 kg [facility] BMI 2021-08-19 04:55:57 29.53 kg/m2 [facility] [place] [facility] Diastolic blood 2019-08-30 13:19:00 88 mm[Hg] Unive rsity of pressure [facility] Heart rate 2019-08-30 13:19:00 78 /min [facility] [place] [facility] Body temperature 2019-08-30 13:19:00 36.83 Marissa Univ ersity [facility] [place] [facility] Respiratory rate 2019-08-30 13:19:00 18 /min Univ ersity [facility] [place] [facility] Body height 2019-08-30 13:19:00 188 cm [facility]i [facility] Body weight 2019-08-30 13:19:00 97.523 kg [facility] BMI 2019-08-30 13:19:00 27.60 kg/m2 [facility] [place] [facility] Oxygen saturation in 2019-08-30 13:19:00 98 /min University of Arterial blood by [facility] Pulse oximetry Branch Systolic blood 2019-08-30 13:19:00 139 mm[Hg] Univer sity of pressure [place] [facility] Diastolic blood 2019-08-30 13:19:00 88 mm[Hg] Unive rsity of pressure [facility] Heart rate 2019-08-30 13:19:00 78 /min [facility]i [facility] Body temperature 2019-08-30 13:19:00 36.83 Marissa Univ [facility] Respiratory rate 2019-08-30 13:19:00 18 /min Univ ersity [facility] [place] [facility] Body height 2019-08-30 13:19:00 188 cm [facility] Body weight 2019-08-30 13:19:00 97.523 kg [facility] [place] [facility] BMI 2019-08-30 13:19:00 27.60 kg/m2 [facility] [place] [facility] Oxygen saturation in 2019-08-30 13:19:00 98 /min University of Arterial blood by [facility] Pulse oximetry Branch Systolic blood 2019-08-30 13:19:00 139 mm[Hg] Univer sity of pressure [place] [facility] Systolic blood 2018-12-17 16:42:00 129 mm[Hg] Univer sity of pressure [place] [facility] Diastolic blood 2018-12-17 16:42:00 87 mm[Hg] Unive rsity of pressure [place] [facility] Heart rate 2018-12-17 16:42:00 91 /min [facility]i [facility] [place] [facility] Body temperature 2018-12-17 16:42:00 36.44 Marissa Univ [facility] [place] [facility] Respiratory rate 2018-12-17 16:42:00 18 /min Univ [facility] [place] [facility] Body weight 2018-12-17 16:42:00 96.525 kg [facility] [place] [facility] BMI 2018-12-17 16:42:00 27.32 kg/m2 [facility] [place] [facility] Oxygen saturation in 2018-12-17 16:42:00 98 /min University of Arterial blood by [facility] Pulse oximetry Branch Systolic blood 2018-12-17 16:42:00 129 mm[Hg] Univer sity of pressure [place] [facility] Diastolic blood 2018-12-17 16:42:00 87 mm[Hg] Unive rsity of pressure [place] [facility] Heart rate 2018-12-17 16:42:00 91 /min [facility]i [facility] [place] [facility] Body temperature 2018-12-17 16:42:00 36.44 Marissa Univ [facility] [place] [facility] Respiratory rate 2018-12-17 16:42:00 18 /min Univ [facility] [place] [facility] Body weight 2018-12-17 16:42:00 96.525 kg [facility] [place] [facility] BMI 2018-12-17 16:42:00 27.32 kg/m2 [facility] [place] [facility] Oxygen saturation in 2018-12-17 16:42:00 98 /min University of Arterial blood by [facility] Pulse oximetry Branch Procedures Procedure Date / Time Performing Clinician Source Performed URINALYSIS 2021-08-19 06:41:00 Francisco Fraser [facility] URINE DRUG (IMMUNOASSAY) 2021-08-19 06:41:00 Francisco [facility] DRUG Medical [facility] nch SCREEN W/O REFLEX CT TRAUMA THORAX W 2021-08-19 05:51:00 Francisco Fraser [facility] CONTRAST Medical [place] CT TRAUMA ABDOMEN PELVIS 2021-08-19 05:51:00 Francisco Fraser [facility] CONTRAST Medical [place] CT TRAUMA HEAD WO 2021-08-19 05:49:00 Francisco Fraser [facility] CONTRAST Medical Branch CT TRAUMA CERVICAL SPINE 2021-08-19 05:49:[address] [facility] CONTRAST Medical Branch CT TRAUMA THORACIC SPINE 2021-08-19 05:49:[address] [facility] CONTRAST Medical [place] CT TRAUMA LUMBAR SPINE 2021-08-19 05:49:[address] [facility] Medical [place] ABORH CONFIRMATION (LAB 2021-08-19 05:45:00 Francisco Fraser [facility] ONLY) Medical [place] HB ABO GROUPING 2021-08-19 05:05:00 Francisco Fraser [facility] ACTIVATED PARTIAL 2021-08-19 05:04:00 Francisco Fraser [facility] THRMPLAS CATHRYN [facility] Branch LIPASE 2021-08-19 05:04:00 Francisco Fraser [facility] COMP. METABOLIC PANEL 2021-08-19 05:04:00 Francisco Fraser [facility] ([id number]) Medical Branch ETHANOL 2021-08-19 05:04:00 Francisco Fraser [facility] CBC WITH DIFF 2021-08-19 05:04:00 Francisco Fraser [facility] PROTHROMBIN TIME / INR 2021-08-19 05:04:[address] [facility] LACTIC ACID WHOLE BLOOD 2021-08-19 05:03:00 Francisco Fraser [facility] ASSIGNMENT OF BENEFITS 2018-12-17 15:15:52 Doctor Unassigned, No [facility] Name Medical Branch Encounters Start End Encounter Admission Attending Care Care Encounter Source Date/Time Date/Time Type Type Clinicians Facility Department ID 2022-05-18 2022-05-18 Outpatient FOG_Munshi_ AOSM AOSM [id number] Lizette 00:00:00 00:00:00 Sanchez [id number] Orthop e dic Sports Medicin e 2021-08-18 2021-08-19 Emergency X BRIA [facility] ERT [id number] Univers 23:48:00 05:09:[address] [facility] 2021-08-18 2021-08-19 [facility] [id number] Univers 23:48:00 05:09:00 Francisco DURAND [id number] i ty [facility] 4.2.7.2.686 [facility] [id number] [address] 2020-09-11 2020-09-11 [place] [id number] [place] 08:59:00 08:59:00 0506 [facility] 2020-05-15 2020-05-15 Outpatient Koudela_A MMG MMG [id number] [place] 11:57:00 11:57:00 0107 [facility] 2020-05-14 2020-05-14 Outpatient Koudela_A MMG MMG [id number] [place] 10:42:00 10:42:00 0106 [facility] 2020-05-13 2020-05-13 Outpatient Koudela_A MMG MMG [id number] [place] 10:40:00 10:40:00 0105 [facility] 2019-08-30 2019-08-30 Urgent Pob1, Acute [facility] [id number] 07:53:57 08:35:51 [facility] [id number] [place] 4.2.7.2.686 Professio [id number] [address]al [address] 2019-08-30 2019-08-30 Urgent Pob1, Acute Care Clinic [facility] 1. 2.840.114 [id number] [facility] 07:53:57 08:35:51 Care Anewi, [facility] [id number] ity of [place] 4.2.7.2.686 [place] Professio [id number] [facility] [address] [place] [address] 2019-08-30 2019-08-30 Outpatient R TREVOR, [facility] [id number] Univers 08:00:00 08:00:[address] [facility] 2019-08-29 2019-08-29 Nurse SYED Guerrero [id number] 00:00:00 00:00:00 Triage Vianney M EMELIA [id number] HOSPITAL 4.2.7.2.686 [id number] 2019-08-29 2019-08-29 Nurse SYED Guerrero [id number] Univers 00:00:00 00:00:00 Triage Vianney M EMELIA [id number] ity of HOSPITAL 4.2.7.2.686 [place] as [id number] [address] 2018-12-17 2018-12-17 Nurse Nurse, Raul [facility] 1.2.840.114 [id number] 11:04:48 11:28:20 Visit Urgent Care Health [id number] Surgical 4.2.7.2.686 Specialti [id number] 2018-12-17 2018-12-17 Nurse Nurse, [facility] Urgent Care [facility] 1.2 .840.114 [id number] [facility] 11:04:48 11:28:20 Visit Unknown, Attending Health 350.1.13.10 ity of Surgical 4.2.7.2.686 [place] as Specialti [id number] [place] dical [address] [facility] 2018-12-17 2018-12-17 Orders Doctor SYED Sauceda.2.840.114 [id number] 00:00:00 00:00:00 Only Unassigned, EMELIA 350.1.13.10 [place] [facility] 4.2.7.2.686 [id number] 2018-12-17 2018-12-17 Orders Doctor SYED Rodriguez2.840.114 [id number] Univers 00:00:00 00:00:00 Only Unassigned, EMELIA 350.1.13.10 ity of [place] [facility] 4.2.7.2.686 [place] as [id number] [address] 2017-11-01 2017-11-01 [facility] [id number] 09:05:00 11:25:00 [facility] Results Test Description Test Time Test Comments Results Result Comments Source Lactic Acid Whole Blood 2021-08-19 06:52:45 Test Item Value Reference Range Interpretation Comme nts LACTIC ACID (test code = 3884550802) 1.82 mmol/L 0.50-2.20 Lab Interpretation (test code = 49710-6) [facility] Only[facility]2021-08-19 06:09:17 Test Item Value Reference Range Interpretation Comments ABO & RH (test code O Positive Performe d at [facility] = 20) Laboratory Serv [facility] [place] [address] Free: [phone] A No. [id number] [facility]Type and Screen - ONCE [id number] 05:48:43 Test Item Value Reference Range Interpretation Comments ABO & RH (test code O Positive Performe d at [facility] = 20) Laboratory Serv [facility] [place], [place] [address]Toll Free: [phone] A No. [id number] IAT (test code = Negative Performed a t [facility] 1185) Laboratory [facility] [place], [place] [address]Toll Free: [phone] A No. [id number] [facility] THRMPLAS [id number] 05:38:43 Test Item Value Reference Range Interpretation Comments APTT Patient (test See_Comment [Automat ed code = 3173-2) message] The system which generated this result transmitted reference range : 23 - 38 Seconds . The reference range was not used to interpr et this result as normal/abnormal . DIANNE (test code = DIANNE) The [facility] patient population mean normal value for aPTT is 30 seconds. Lab Interpretation Normal (test code = 98896-6) [facility] / [id number] 05:36:22 Test Item Value Reference Range Interpretation Comments PROTIME PATIENT (test See_Comment [Auto mated message] code = 5964-2) The system [email or web address] generated this result transmitted ref erence range: 12.0 - 1 4.7 Seconds. The re ference range was not u sed to interpret this result as normal/abnor mal. INR (test code = 6301-6) Nor mal INR <1.1; Warfarin Therap eutic range 2.0 to 3. 0 or 2.5 to 3.5, dep ending upon the indica tions. 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 METABOLIC PANEL (08583)2021-08-19 05:32:44 Test Item Value Reference Range Interpretation Comments NA (test code = 140 mmol/L 135-145 5085813199) K (test code = 3.5 mmol/L 3.5-5.0 0711762837) CL (test code = 103 mmol/L 98-108 7296055600) CO2 TOTAL (test code = 26 mmol/L 23-31 0557764764) AGAP (test code = 2-16 2942104456) BUN (test code = 16 mg/dL 7-23 4137225535) GLUCOSE (test code = 81 mg/dL 70-110 5907938862) CREATININE (test code = 1.23 mg/dL 0.60-1.25 2788499426) TOTAL BILI (test code = 0.6 mg/dL 0.1-1.5 0224088382) CALCIUM (test code = 8.4 mg/dL 8.6-10.6 L 0603641817) T PROTEIN (test code = 7.0 g/dL 6.3-8.2 4541008906) ALBUMIN (test code = 4.4 g/dL 3.5-5.0 6105356678) ALK PHOS (test code = 70 U/L 34-122 2948503292) ALTv (test code = 22 U/L 5-50 1742-6) AST(SGOT) (test code = 31 U/L 13-40 3036497478) eGFR (test code = mL/min/1.73m2 3690184787) DIANNE (test code = DIANNE) Association of [...] tests). Lab Interpretation Abnormal (test code = 23897-3) [facility]2022-04-13 05:32:24 Test Item Value Reference Range Interpretation Comments LIPASE (test code = 4005102650) 483 U/L 0-220 H Lab Interpretation (test code = Abnormal 38264-7) [facility] SouthCB WITH [id number] 05:16:40 Test Item Value Reference Range Interpretation Comments WBC (test code = See_Comment [Automated 3190-2) message] The sy stem which generated this [...] RDW-SD (test code = 40.1 fL 38.5-51.6 98392-3) RDW-CV (test code = 12.1 % 12.1-15.4 788-0) PLT (test code = See_Comment [Automated 777-3) message] The sy stem which generated this result transmitted reference range : 150 - 328 10*3/ ?L. The reference r mona was not used to interpret this result as normal/abnormal . MPV (test code = 10.0 fL 9.8-13.0 39381-7) NRBC/100 WBC (test See_Comment [Automat ed code = 8424869829) message] The system which generated this result transmitted reference range : 0.0 - 10.0 /100 WBCs. The refer ence range was not u sed to interpret th is result as normal/abnormal . NRBC x10^3 (test code <0.01 See_Comment [Auto mated = 1805700492) message] The s ystem which generated this result transmitted reference range : 10*3/?L. The reference range was not used to interpret this result as normal/abnormal . GRAN MAT (NEUT) % 51.6 % (test code = 770-8) IMM GRAN % (test code 0.30 % = 8128818415) LYMPH % (test code = 39.5 % 736-9) MONO % (test code = 7.4 % 5905-5) EOS % (test code = 0.4 % 713-8) BASO % (test code = 0.8 % 706-2) GRAN MAT x10^3(ANC) 3.81 10*3/uL 1.99-6.95 (test code = 0478255987) IMM GRAN x10^3 (test <0.03 0.00-0.06 code = 4486528212) LYMPH x10^3 (test code 2.92 10*3/uL 1.09-3.23 = 731-0) MONO x10^3 (test code 0.55 10*3/uL 0.36-1.02 = 742-7) EOS x10^3 (test code = 0.03 10*3/uL 0.06-0.53 L 711-2) BASO x10^3 (test code 0.06 10*3/uL 0.01-0.09 = 704-7) Lab Interpretation Abnormal (test code = 89992-4) [facility]1HR W IMAGES*HSE*2017-11-01 11:52:11FluoroscopyLocation Code: [id number] HISTORY: R52: PAIN, UNSPECIFIEDComments: Fluoroscopy was provided during lumbar discogram and sacroiliacinjection. Approximate fluoroscopy time was 20.9 seconds. 5 images wereobtained.IMPRESSION: Fluoroscopy services provided. Please see operative report for fulldetails."
[2022-11-23] MEDS ORDERED: NA CHLORIDE 0.9% 1,000 ML ONE (08:01)
[2022-11-23 08:07] LABS: Absolute Lymphocytes (CBC) 1.6 K/uL (0.7-4.9); Hematocrit 42.6 % (39.6-49.0); Lymphocytes % 23.9 % (15.3-44.8); MCV 94.1 fL (80-100); MPV 8.1 fL (7.6-11.3); RBC Red Blood Cell Count 4.53 M/uL (4.33-5.43)
[2022-11-23 08:10] LABS: Protime INR 1.15
[2022-11-23 08:24] LABS: ALT/SGPT 26 U/L (16-61); AST/SGOT 17 U/L (15-37); Albumin 4.1 g/dL (3.4-5.0); Alkaline Phosphatase 85 U/L (45-117); BUN Blood Urea Nitrogen 21 mg/dL (7-18); Bicarbonate 29 mEq/L (21-32); Bilirubin Direct 0.2 mg/dL (0-0.2); Bilirubin Indirect, Calculated 0.6 mg/dL (0.2-0.8); Bilirubin Total 0.8 mg/dL (0.2-1.0); Glomerular Filtration Rate 77 ml/min (=/>90); Glucose Level 108 mg/dL (74-106); Potassium 3.7 mEq/L (3.5-5.1); Protein, Total 7.2 g/dL (6.4-8.2); Sodium Level 138 mEq/L (136-145)
--- NOTE | 2022-11-23 08:28 | RAD REPORT ---
EXAM DESCRIPTION: CT - Head C Spine Mpr Wo Con - 11/23/2022 8:09 am CLINICAL HISTORY: Confusion, slurred speech, neck injury with neck pain COMPARISON: 2020 TECHNIQUE: Computed axial tomography of the head and cervical spine was obtained. Sagittal and coronal reconstruction was performed. All CT scans are performed using dose optimization technique as appropriate and may include automated exposure control or mA/KV adjustment according to patient size. FINDINGS: An intracranial bleed is not seen. The ventricles are normal in caliber. No significant hypodensity within the brain. An extra-axial fluid collection is not noted. Fluid within the visualized sinuses and mastoids is not seen A cervical fracture is not visualized. No dislocation is noted. IMPRESSION: No acute intracranial abnormality is seen. A cervical fracture is not visualized. If the patient continues to have symptoms to suggest intracranial /spinal cord pathology then MRI wou ld be recommended
[2022-11-23] MEDS ORDERED: TDAP (DIPHTH,PERTUSS(ACELL),TET VAC) 0.5 ML VIAL IMVAC ONE (08:34)
[2022-11-23 08:36] LABS: Barbiturates NEGATIVE (NEGATIVE); Benzodiazepines POSITIVE (NEGATIVE); Cocaine POSITIVE (NEGATIVE); METHAMPHETAM POSITIVE (NEGATIVE); Methadone NEGATIVE (NEGATIVE); Opiates POSITIVE (NEGATIVE); Phencyclidine NEGATIVE (NEGATIVE); THC Cannibis POSITIVE (NEGATIVE)
--- NOTE | 2022-11-23 11:27 | EDPHYS ---
Physician Documentation [facility] Name: Sohan Rossi Age: 42 yrs Sex: Male : 1980 Arrival Date: 11/23/2022 Time: 07:36 Bed DIS3 Private MD: ED Physician Kush Muniz Historical: - Home Meds: 11/23 07:48 Oxycodone HCl Oral [Active]; Hydrocodone-Acetaminophen Oral [Active]; bp - PMHx: 07:48 Anxiety; Hypertension; bp - PSHx: 07:48 Left hip; bp - Immunization history:: Adult Immunizations up to date. - Social history:: Smoking status: unknown. Vital Signs: 07:45 BP 160 / 100; Pulse 116; Resp 16; Temp 98; Pulse Ox 100% ; bp 09:00 BP 142 / 96; Pulse 79; Resp 18; Pulse Ox 100% ; bp 10:38 BP 154 / 97; Pulse 92; Resp 16; Pulse Ox 99% ; bp MDM: 11:27 Patient medically screened. kdr 11/23 07:50 Order name: Acetaminophen; Complete Time: 08:37 kdr 11/23 07:50 Order name: Basic Metabolic Panel; Complete Time: 08:37 kdr 11/23 07:50 Order name: CBC with Diff; Complete Time: 08:37 kdr 11/23 07:50 Order name: ETOH Level; Complete Time: 08:37 kdr 11/23 07:50 Order name: Hepatic Function; Complete Time: 08:37 kdr 11/23 07:50 Order name: PT-INR; Complete Time: 08:37 kdr 11/23 07:50 Order name: Ptt, Activated; Complete Time: 08:37 kdr 11/23 07:50 Order name: Salicylate; Complete Time: 10:56 kdr 11/23 07:50 Order name: Urine Drug Screen; Complete Time: 08:37 kdr 11/23 07:55 Order name: CT Head C Spine; Complete Time: 08:37 kdr 11/23 07:50 Order name: IV Saline Lock; Complete Time: 07:50 kdr 11/23 07:50 Order name: Labs collected and sent; Complete Time: 07:59 kdr 11/23 07:50 Order name: Suicide Screening ([place]); Complete Time: 08:05 kdr Administered Medications: 07:54 Drug: NS 0.9% IV 1000 ml Route: IV; Rate: 1 bolus; Site: left antecubital; ko1 11:38 Follow up: IV Status: Completed infusion; IV Intake: 1000ml bp 08:33 Drug: Tetanus-Diphtheria Toxoid IM Adult 0.5 ml {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 bp Exp: 04/16/2023. Lot #: [id number]. } Route: IM; Site: right deltoid; 11:38 Follow up: Response: No adverse reaction bp Disposition Summary: 11/23/22 11:27 Discharge Ordered Location: Home kdr Problem: new kdr Symptoms: have improved kdr Condition: Stable kdr Diagnosis - Other psychoactive substance use, unspecified kdr - Altered mental status, unspecified kdr Followup: kdr - With: Private Physician - When: 2 - 3 days - Reason: If symptoms return, Further diagnostic work-up, Recheck today's complaints, Continuance of care, Re-evaluation by your physician Discharge Instructions: - Discharge Summary Sheet kdr - Confusion kdr - Substance Use Disorder kdr - Substance Use Disorder and Mental Illness kdr Forms: - Medication Reconciliation Form kdr - Thank You Letter kdr - Patient Portal Instructions kdr Signatures: Dispatcher [employer] Kush Segovia MD MD kdr Ian Herrera, RN RN bp Alexandria Alcantara RN RN ko1
--- NOTE | 2022-11-23 11:27 | ER ---
Nurse's Notes [facility] Name: Sohan Rossi Age: 42 yrs Sex: Male : 1980 Arrival Date: 11/23/2022 Time: 07:36 Bed DIS3 Private MD: Diagnosis: Other psychoactive substance use, unspecified;Altered mental status, unspecified Presentation: 11/23 07:45 Chief complaint: EMS states: ARRESTED BY PD ATTEMPTING TO GET INTO WRONG APARTMENT, bp FREQUENT H/O DRUG ABUSE. Coronavirus screen: At this time, the client does not indicate any symptoms associated with coronavirus-19. Ebola Screen: No symptoms or risks identified at this time. Initial Sepsis Screen: Does the patient meet any 2 criteria? No. Patient's initial sepsis screen is negative. Does the patient have a suspected source of infection? No. Patient's initial sepsis screen is negative. Risk Assessment: Do you want to hurt yourself or someone else? Patient reports no desire to harm self or others. Onset of symptoms is unknown. Care prior to arrival: IV initiated. 20 GA, in the left antecubital area, Glucose check: 121. 07:45 Method Of Arrival: EMS: [facility] bp 07:45 Acuity: KATIE 3 bp Triage Assessment: 07:48 General: Appears in no apparent distress. Behavior is calm, cooperative. Pain: bp Complains of pain in forehead. EENT: No deficits noted. Neuro: No deficits noted. Cardiovascular: No deficits noted. Respiratory: No deficits noted. GI: No signs and/or symptoms were reported involving the gastrointestinal system. : No signs and/or symptoms were reported regarding the genitourinary system. Derm: No deficits noted. Musculoskeletal: No deficits noted. Historical: - Home Meds: 07:48 Oxycodone HCl Oral [Active]; Hydrocodone-Acetaminophen Oral [Active]; bp - PMHx: 07:48 Anxiety; Hypertension; bp - PSHx: 07:48 Left hip; bp - Immunization history:: Adult Immunizations up to date. - Social history:: Smoking status: unknown. Screenin:03 [facility] ED Fall Risk Assessment (Adult) History of falling in the last 3 months, bp including since admission No falls in past 3 months (0 pts). Abuse screen: Denies threats or abuse. Denies injuries from another. Nutritional screening: No deficits noted. Tuberculosis screening: No symptoms or risk factors identified. Assessment: 07:45 General: SEE TRIAGE NOTE. bp 09:00 Reassessment: Patient appears in no apparent distress at this time. Patient is alert, bp oriented x 3, equal unlabored respirations, skin warm/dry/pink. 10:38 Reassessment: No changes from previously documented assessment. Patient is alert, bp oriented x 3, equal unlabored respirations, skin warm/dry/pink. 11:36 Reassessment: pt called friend Mike Arellano to come pick him up. iw Overdose: 11:00 [place] Suicide Severity Screening: "In the past month, have you wished you were bp or wished you could go to sleep and not wake up?" Patient responds "no." "In the past month, have you actually had any thoughts of killing yourself?" Patient responds "no." "In your lifetime, have you ever done anything, started to do anything, or prepared to do anything to end your life?" Patient responds "no.". Vital Signs: 07:45 BP 160 / 100; Pulse 116; Resp 16; Temp 98; Pulse Ox 100% ; bp 09:00 BP 142 / 96; Pulse 79; Resp 18; Pulse Ox 100% ; bp 10:38 BP 154 / 97; Pulse 92; Resp 16; Pulse Ox 99% ; bp ED Course: 07:45 Patient arrived in ED. bp 07:47 Triage completed. bp 07:49 Kush Muniz MD is Attending Physician. kdr 07:50 Ian Herrera, EDIS is Primary Nurse. bp 07:50 Maintain EMS IV. Dressing intact. Good blood return noted. Site clean \\T\\ dry. Gauge \\T\\ bp site: 20 G LEFT AC. 07:58 Acetaminophen Sent. ko1 07:58 Basic Metabolic Panel Sent. ko1 07:58 CBC with Diff Sent. ko1 07:58 ETOH Level Sent. ko1 07:59 Hepatic Function Sent. ko1 07:59 PT-INR Sent. ko1 07:59 Ptt, Activated Sent. ko1 07:59 Salicylate Sent. ko1 08:10 CT Head C Spine In Process Unspecified. EDMS 09:03 Patient has correct armband on for positive identification. Bed in low position. Call bp light in reach. Side rails up X2. 11:37 No provider procedures requiring assistance completed. IV discontinued, intact, iw bleeding controlled, No redness/swelling at site. Pressure dressing applied. 11:37 Provided Education on: discharge instructions . 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 bp Exp: 04/16/2023. Lot #: [id number]. } Route: IM; Site: right deltoid; 11:38 Follow up: Response: No adverse reaction bp Intake: 11:38 IV: 1000ml; Total: 1000ml. bp Outcome: 11:27 Discharge ordered by . kdr 11:37 Discharged to home ambulatory, with friend. iw 11:37 Condition: good 11:37 Discharge instructions given to patient, Instructed on discharge instructions, follow up and referral plans. Demonstrated understanding of instructions, follow-up care. 11:38 Patient left the ED. bp Signatures: Dispatcher [employer] EDMS Kush Muniz MD MD kdr So Miles, RN EDIS iw Ian Herrera RN RN bp Alexandria Alcantara, EDIS RN ko1
[2022-11-23 11:44] VITALS: TEMP 98
[2022-11-23 11:47] VITALS: BP 154/97; O2SAT 99
== END 2022-11-23 11:38 | disposition home or self-care (01) ==
LOC: ER 07:36
DX: F19.10 Other psychoactive substance abuse, uncomplicated (principal); I10 Essential (primary) hypertension; F41.9 Anxiety disorder, unspecified; Z23 Encounter for immunization
CPT/HCPCS: 96361; 85025; 80048; 36415; 85610; 80076; 85730; 80307; 70450; 72125; 90471; 96360; 99284; 80143; 80179; 82077; J7030